=== PATIENT | female | born 1940 | race African-American/Black ===

== ENCOUNTER 2017-06-02 00:41 | Inpatient (IN) | payer MEDICARE, MEDICAID ==
[~2017-06-02] VITALS: Ht 157.5 cm; Wt 68.5 kg
[~2017-06-02 00:41] MED LIST: ALBU90AE IH; CLON0.1T PO; DIPH25CA83 PO; LIDO30CR TP; METO-293 PO; NEPVIT PO; OMEP20CA4 PO; TRAM50TA3 PO
[2017-06-02 04:33] LABS: BASOPHILS % 0.6 % (0.0-2.0); EOSINOPHILS % 3.6 % (0.0-5.0); HEMATOCRIT. 31.1 % (36.0-48.0); HEMOGLOBIN. 9.9 g/dL (12.0-16.0); LYMPHOCYTES % 21.9 % (20.0-50.0); MEAN CORPUSCULAR HEMOGLOBIN 27.8 pg (28.0-32.0); MEAN CORPUSCULAR VOLUME 87.5 fL (81.0-99.0); MEAN PLATELET VOLUME 9.3 fl (7.4-10.4); MONOCYTES % 14.7 % (2.0-8.0); NEUTROPHILS % 59.2 % (40.0-76.0); PLATELET 164 x1000/uL (130-400); RED BLOOD CELL COUNT 3.56 mill/uL (4.2-5.4); RED CELL DISTRIBUTION WIDTH 17.3 % (11.6-14.6)
[2017-06-02] MEDS ORDERED: LEVOFLOXACIN 750MG PREMIX 150 ML IV ONE (04:45)
[2017-06-02 04:47] LABS: CARBON DIOXIDE 33 mEq/L (21-32); CHLORIDE 97 mEq/L (98-107)
[2017-06-02 09:17] VITALS: BP 130/70
[2017-06-02 09:22] VITALS: BP 130/70
[2017-06-02] MEDS ORDERED: METO100T5 PO (09:42)
[2017-06-02] MEDS ORDERED: ALBUTEROL (0.083%) 2.5MG/3ML NEB HHN PRN (11:45)
[2017-06-02] MEDS ORDERED: CLONIDINE 0.1MG TABLET PO PRN ×2 (11:45→13:00)
[2017-06-02] MEDS: FAMOTIDINE 20MG TABLET PO SCH (12:13)
[2017-06-02 12:30] VITALS: BP 128/52
[2017-06-02] MEDS ORDERED: MAGNESIUM/ALUMINUM HYDROXIDE/SIMETHICONE 30ML UDC PO PRN (13:00)
[2017-06-02] MEDS ORDERED: ONDANSETRON HCL 4MG/2ML VIAL IV PRN (13:00)
[2017-06-02] MEDS ORDERED: GUAIFENESIN 200MG/10ML SUGAR FREE UDC PO PRN (13:00)
[2017-06-02] MEDS ORDERED: IPRATROPIUM/ALBUTEROL 0.5-3(2.5)MG/3ML NEB INH PRN (13:00)
[2017-06-02] MEDS: HYDROCODONE/ACETAMINOPHEN 5/325MG TABLET PO PRN ×2 (16:21→23:42)
[2017-06-02 16:23] VITALS: BP 166/72
[2017-06-02 17:28] VITALS: BP 135/75
[2017-06-02 20:00] VITALS: BP 102/36
[2017-06-03] VITALS: BP 169/77
[2017-06-03 02:30] VITALS: BP 122/58
[2017-06-03 04:00] VITALS: BP 111/40
[2017-06-03 07:19] LABS: BASOPHILS % 0.8 % (0.0-2.0); EOSINOPHILS % 3.1 % (0.0-5.0); HEMATOCRIT. 30.6 % (36.0-48.0); HEMOGLOBIN. 9.7 g/dL (12.0-16.0); LYMPHOCYTES % 14.3 % (20.0-50.0); MEAN CORPUSCULAR HEMOGLOBIN 27.9 pg (28.0-32.0); MEAN CORPUSCULAR VOLUME 88.1 fL (81.0-99.0); MEAN PLATELET VOLUME 9.1 fl (7.4-10.4); MONOCYTES % 12.9 % (2.0-8.0); NEUTROPHILS % 68.9 % (40.0-76.0); PLATELET 151 x1000/uL (130-400); RED BLOOD CELL COUNT 3.48 mill/uL (4.2-5.4); RED CELL DISTRIBUTION WIDTH 17.8 % (11.6-14.6)
[2017-06-03 08:03] LABS: CARBON DIOXIDE 30 mEq/L (21-32); CHLORIDE 103 mEq/L (98-107); PHOSPHORUS 2.6 mg/dL (2.5-4.9)
[2017-06-03] MEDS: FOLIC ACID/VITAMIN B COMP W-C TABLET PO SCH (08:24)
[2017-06-03] MEDS: FAMOTIDINE 20MG TABLET PO SCH (08:24)
[2017-06-03] MEDS: DOCUSATE SODIUM 100MG CAPSULE PO SCH (09:31)
[2017-06-03 12:00] VITALS: BP 130/58
[2017-06-03 16:00] VITALS: BP 128/59
[2017-06-03 20:00] VITALS: BP 118/46
[2017-06-03] MEDS ORDERED: EPOETIN ALFA 10000UNITS/ML VIAL SUBCUT SCH (21:00)
[2017-06-04] VITALS: BP_SYST 101; BP_SYST 124; BP_DIAS 39; BP_DIAS 55
[2017-06-04 04:00] VITALS: BP 124/55
[2017-06-04 06:31] LABS: BASOPHILS % 0.6 % (0.0-2.0); EOSINOPHILS % 3.5 % (0.0-5.0); HEMATOCRIT. 30.2 % (36.0-48.0); HEMOGLOBIN. 9.5 g/dL (12.0-16.0); LYMPHOCYTES % 21.9 % (20.0-50.0); MEAN CORPUSCULAR VOLUME 89.1 fL (81.0-99.0); MEAN PLATELET VOLUME 9.5 fl (7.4-10.4); MONOCYTES % 14.4 % (2.0-8.0); NEUTROPHILS % 59.6 % (40.0-76.0); PLATELET 138 x1000/uL (130-400); RED BLOOD CELL COUNT 3.39 mill/uL (4.2-5.4); RED CELL DISTRIBUTION WIDTH 17.6 % (11.6-14.6)
[2017-06-04 08:00] VITALS: BP 103/40
[2017-06-04 08:30] LABS: PHOSPHORUS 2.4 mg/dL (2.5-4.9)
[2017-06-04] MEDS: FOLIC ACID/VITAMIN B COMP W-C TABLET PO SCH (09:54)
[2017-06-04] MEDS: DOCUSATE SODIUM 100MG CAPSULE PO SCH (09:54)
[2017-06-04] MEDS: FAMOTIDINE 20MG TABLET PO SCH (09:54)
[2017-06-04 12:00] VITALS: BP 121/78
[2017-06-04] MEDS: ACETAMINOPHEN 325MG TABLET PO PRN (13:19)
[2017-06-04 16:00] VITALS: BP 105/49
[2017-06-04 20:47] VITALS: BP 109/42
[2017-06-05] VITALS: BP 116/49
[2017-06-05 04:46] VITALS: BP 121/55
[2017-06-05 07:54] VITALS: BP 125/51
[2017-06-05 07:57] LABS: BASOPHILS % 0.4 % (0.0-2.0); HEMATOCRIT. 31.5 % (36.0-48.0); LYMPHOCYTES % 16.6 % (20.0-50.0); MEAN CORPUSCULAR VOLUME 88.3 fL (81.0-99.0); MEAN PLATELET VOLUME 9.4 fl (7.4-10.4); MONOCYTES % 11.2 % (2.0-8.0); NEUTROPHILS % 67.8 % (40.0-76.0); PLATELET 149 x1000/uL (130-400); RED BLOOD CELL COUNT 3.57 mill/uL (4.2-5.4); RED CELL DISTRIBUTION WIDTH 17.5 % (11.6-14.6)
[2017-06-05] MEDS ORDERED: REGADENOSON 0.4 MG/5 ML IV ONE ×2 (08:15→10:19)
[2017-06-05] MEDS: FOLIC ACID/VITAMIN B COMP W-C TABLET PO SCH (08:56)
[2017-06-05] MEDS: DOCUSATE SODIUM 100MG CAPSULE PO SCH (08:56)
[2017-06-05] MEDS: FAMOTIDINE 20MG TABLET PO SCH (08:57)
[2017-06-05 12:00] VITALS: BP 130/37
[2017-06-05] MEDS ORDERED: LEVOFLOXACIN 500MG PREMIX 100 ML IV SCH (14:00)
[2017-06-05 16:00] VITALS: BP 91/45
[2017-06-05 20:00] VITALS: BP 116/47
[2017-06-06] VITALS: BP 138/65
[2017-06-06 04:00] VITALS: BP 117/49
[2017-06-06 08:00] VITALS: BP 136/60
[2017-06-06] MEDS: FAMOTIDINE 20MG TABLET PO SCH (09:56)
[2017-06-06] MEDS: FOLIC ACID/VITAMIN B COMP W-C TABLET PO SCH (09:57)
[2017-06-06] MEDS: DOCUSATE SODIUM 100MG CAPSULE PO SCH (09:58)
[2017-06-06 12:00] VITALS: BP 122/41
[2017-06-06] MEDS: ACETAMINOPHEN 325MG TABLET PO PRN (12:37)
[2017-06-06 14:29] VITALS: BP 122/41
[2017-06-06 16:00] VITALS: BP 120/48
== END 2017-06-06 16:07 | disposition home health service (06) | DRG 291 ==
LOC: ER 00:41 → 6WST 05:38 → EDBEDREQTM 05:40 → EDBEDREQ 05:40 → ENRESERV 06:42
PROVIDERS: ADMIT Hospitalist; ATTEND Hospitalist
PROC: 5A1D70Z Performance of Urinary Filtration, Intermittent, Less than 6 Hours Per Day (ICD-10-PCS; principal; 2017-06-03)
DX: I13.2 Hypertensive heart and chronic kidney disease with heart failure and with stage 5 chronic kidney disease, or end stage renal disease (principal); N18.6 End stage renal disease; J96.00 Acute respiratory failure, unspecified whether with hypoxia or hypercapnia; J18.9 Pneumonia, unspecified organism; Q61.3 Polycystic kidney, unspecified; J90 Pleural effusion, not elsewhere classified; Q44.6 Cystic disease of liver; D63.1 Anemia in chronic kidney disease; I50.31 Acute diastolic (congestive) heart failure; I87.1 Compression of vein; E78.5 Hyperlipidemia, unspecified; K21.9 Gastro-esophageal reflux disease without esophagitis; K74.60 Unspecified cirrhosis of liver; Z82.49 Family history of ischemic heart disease and other diseases of the circulatory system; Z86.73 Personal history of transient ischemic attack (TIA), and cerebral infarction without residual deficits; Z90.49 Acquired absence of other specified parts of digestive tract; Z99.2 Dependence on renal dialysis; Z88.0 Allergy status to penicillin; Z82.71 Family history of polycystic kidney; Z79.899 Other long term (current) drug therapy
CPT/HCPCS: 36415; 71010; 76604; 78452; 80048; 80053; 83605; 83735; 84100; 84484; 85025; 87040; 93005; 93017; 93970; 96365; 97116; 97162; 97166; 99285; A9500; J0885; J1956; J2405; J2785; J7030

== ENCOUNTER 2018-07-16 08:49 | Inpatient (IN) | payer MEDICARE, MEDICAID ==
[2018-07-16] VITALS (19 sets, daily range): BP systolic 100–172; BP diastolic 42–90
[~2018-07-16] VITALS: Ht 152.4 cm; Wt 65.8 kg
[~2018-07-16 08:49] MED LIST changes: +METO100T16 PO; -TRAM50TA3 PO
[2018-07-16 09:51] LABS: BASOPHILS % 0.3 % (0.0-2.0); CHLORIDE 91 mEq/L (98-107); EOSINOPHILS % 0.1 % (0.0-5.0); HEMATOCRIT. 39.4 % (36.0-48.0); HEMOGLOBIN. 12.5 g/dL (12.0-16.0); LYMPHOCYTES % 9.3 % (20.0-50.0); MEAN CORPUSCULAR HEMOGLOBIN 29.8 pg (28.0-32.0); MEAN CORPUSCULAR VOLUME 94.1 fL (81.0-99.0); MEAN PLATELET VOLUME 9.7 fl (7.4-10.4); MONOCYTES % 7.6 % (2.0-8.0); NEUTROPHILS % 82.7 % (40.0-76.0); PLATELET 179 x1000/uL (130-400); RED BLOOD CELL COUNT 4.19 mill/uL (4.2-5.4); RED CELL DISTRIBUTION WIDTH 17.8 % (11.6-14.6)
[2018-07-16] MEDS ORDERED: FUROSEMIDE 100MG/10ML VIAL IVP ONE (10:30)
[2018-07-16] MEDS ORDERED: NITROGLYCERIN 50MG PREMIX 250 ML IV ONE (10:30)
[2018-07-16] MEDS ORDERED: NITROGLYCERIN 0.4MG TABLET SL SL PRN (10:30)
[2018-07-16 12:42] LABS: BG BASE EXCESS 7.4 mmol/L (-2.0-2.0); BG BILEVEL POS AIRWAY PRESSURE 15/5; BG CARBOXYHEMOGLOBIN 0.8 % (0.5-1.5); BG DEOXYHEMOGLOBIN 0.4 % (0.0-5.0); BG FRACTION INSPIRED OXYGEN 100; BG HCO3 ACT 32.2 mmol/L (22.0-26.0); BG METHEMOGLOBIN 0.3 % (0.0-1.5); BG OXYGEN SATURATION 99.6 % (92.0-98.5); BG OXYHEMOGLOBIN 98.5 % (94.0-97.0); BG PCO2 46.2 mmHg (35.0-45.0); BG PH 7.461 (7.350-7.450); BG PO2 269.7 mmHg (75.0-100.0); BG SAMPLE SITE LEFT RADIAL; BG TOTAL HEMOGLOBIN 12.4 g/dL (12.0-18.0); BG VENT MODE MASK - BIPAP; BG VENT RATE 18 set
[2018-07-16] MEDS ORDERED: ACETAMINOPHEN 325MG TABLET PO PRN (15:00)
[2018-07-16] MEDS ORDERED: IPRATROPIUM/ALBUTEROL 0.5-3(2.5)MG/3ML NEB INH PRN (15:00)
[2018-07-16] MEDS ORDERED: GUAIFENESIN 200MG/10ML SUGAR FREE UDC PO PRN (15:00)
[2018-07-16] MEDS ORDERED: CLONIDINE 0.1MG TABLET PO PRN (15:00)
[2018-07-16] MEDS: METOPROLOL TARTRATE 50MG TABLET PO SCH (21:00)
[2018-07-16] MEDS: OMEPRAZOLE 20MG CAPSULE EXTENDED RELEASE PO SCH (21:43)
[2018-07-16] MEDS: SODIUM CHLORIDE 0.9% INJ 3ML FLUSH IVF SCH (22:00)
[2018-07-17] VITALS (55 sets, daily range): BP systolic 86–159; BP diastolic 34–85
[2018-07-17 05:32] LABS: BASOPHILS % 0.9 % (0.0-2.0); HEMATOCRIT. 34.1 % (36.0-48.0); HEMOGLOBIN. 11.4 g/dL (12.0-16.0); LYMPHOCYTES % 14.5 % (20.0-50.0); MEAN CORPUSCULAR HEMOGLOBIN 30.9 pg (28.0-32.0); MEAN CORPUSCULAR VOLUME 92.6 fL (81.0-99.0); MEAN PLATELET VOLUME 8.9 fl (7.4-10.4); MONOCYTES % 13.4 % (2.0-8.0); NEUTROPHILS % 68.2 % (40.0-76.0); PLATELET 118 x1000/uL (130-400); RED BLOOD CELL COUNT 3.68 mill/uL (4.2-5.4); RED CELL DISTRIBUTION WIDTH 17.3 % (11.6-14.6)
[2018-07-17] MEDS: SODIUM CHLORIDE 0.9% INJ 3ML FLUSH IVF SCH ×2 (06:00→22:00)
[2018-07-17 06:25] LABS: PHOSPHORUS 2.9 mg/dL (2.5-4.9)
[2018-07-17] MEDS: FOLIC ACID/VITAMIN B COMP W-C TABLET PO SCH (08:54)
[2018-07-17] MEDS: OMEPRAZOLE 20MG CAPSULE EXTENDED RELEASE PO SCH ×2 (08:54→21:49)
[2018-07-17] MEDS: METOPROLOL TARTRATE 50MG TABLET PO SCH ×2 (08:55→21:00)
[2018-07-17] MEDS: ONDANSETRON HCL 4MG/2ML INJ IV PRN (14:48)
[2018-07-18] VITALS (37 sets, daily range): BP systolic 87–143; BP diastolic 37–90
[2018-07-18 05:27] LABS: BASOPHILS % 0.5 % (0.0-2.0); EOSINOPHILS % 3.4 % (0.0-5.0); HEMATOCRIT. 34.5 % (36.0-48.0); HEMOGLOBIN. 11.1 g/dL (12.0-16.0); LYMPHOCYTES % 13.7 % (20.0-50.0); MEAN CORPUSCULAR HEMOGLOBIN 30.1 pg (28.0-32.0); MEAN CORPUSCULAR VOLUME 93.6 fL (81.0-99.0); MEAN PLATELET VOLUME 9.1 fl (7.4-10.4); MONOCYTES % 14.6 % (2.0-8.0); NEUTROPHILS % 67.8 % (40.0-76.0); PLATELET 113 x1000/uL (130-400); RED BLOOD CELL COUNT 3.69 mill/uL (4.2-5.4); RED CELL DISTRIBUTION WIDTH 16.9 % (11.6-14.6)
[2018-07-18 05:48] LABS: PHOSPHORUS 2.9 mg/dL (2.5-4.9)
[2018-07-18] MEDS: SODIUM CHLORIDE 0.9% INJ 3ML FLUSH IVF SCH ×3 (06:31→21:01)
[2018-07-18 08:06] LABS: INR 1.2; PARTIAL THROMBOPLASTIN TIME 32.1 sec (23.4-31.0); PROTHROMBIN TIME 11.7 sec (9.1-11.1)
[2018-07-18] MEDS: METOPROLOL TARTRATE 50MG TABLET PO SCH ×2 (09:08→20:12)
[2018-07-18] MEDS: FOLIC ACID/VITAMIN B COMP W-C TABLET PO SCH (09:08)
[2018-07-18] MEDS: OMEPRAZOLE 20MG CAPSULE EXTENDED RELEASE PO SCH ×2 (09:08→20:57)
[2018-07-18] MEDS ORDERED: SODIUM BICARBONATE 4% (2.4MEQ) 5ML VIAL IV ONE (09:46)
[2018-07-18] MEDS: ONDANSETRON HCL 4MG/2ML INJ IV PRN ×2 (10:44→15:37)
[2018-07-19] VITALS: BP 108/43
[2018-07-19 04:00] VITALS: BP 113/42
[2018-07-19] MEDS: SODIUM CHLORIDE 0.9% INJ 3ML FLUSH IVF SCH ×3 (06:02→22:00)
[2018-07-19] MEDS: OMEPRAZOLE 20MG CAPSULE EXTENDED RELEASE PO SCH ×2 (06:15→20:19)
[2018-07-19 07:11] LABS: BASOPHILS % 0.3 % (0.0-2.0); EOSINOPHILS % 1.9 % (0.0-5.0); HEMOGLOBIN. 10.7 g/dL (12.0-16.0); LYMPHOCYTES % 9.2 % (20.0-50.0); MEAN CORPUSCULAR HEMOGLOBIN 30.6 pg (28.0-32.0); MEAN CORPUSCULAR VOLUME 94.5 fL (81.0-99.0); MONOCYTES % 13.3 % (2.0-8.0); NEUTROPHILS % 75.3 % (40.0-76.0); PLATELET 121 x1000/uL (130-400); RED BLOOD CELL COUNT 3.49 mill/uL (4.2-5.4); RED CELL DISTRIBUTION WIDTH 16.8 % (11.6-14.6)
[2018-07-19 07:43] LABS: PHOSPHORUS 1.7 mg/dL (2.5-4.9)
[2018-07-19 08:00] VITALS: BP 114/45
[2018-07-19] MEDS: FOLIC ACID/VITAMIN B COMP W-C TABLET PO SCH (08:35)
[2018-07-19] MEDS: METOPROLOL TARTRATE 50MG TABLET PO SCH ×2 (08:35→20:09)
[2018-07-19] MEDS: ONDANSETRON HCL 4MG/2ML INJ IV PRN (10:54)
[2018-07-19 12:30] VITALS: BP 112/54
[2018-07-19 16:00] VITALS: BP 138/57
[2018-07-19 19:55] VITALS: BP 101/33
[2018-07-20] VITALS (7 sets, daily range): BP systolic 110–147; BP diastolic 41–52
[2018-07-20] MEDS: SODIUM CHLORIDE 0.9% INJ 3ML FLUSH IVF SCH ×3 (05:15→22:00)
[2018-07-20] MEDS: OMEPRAZOLE 20MG CAPSULE EXTENDED RELEASE PO SCH ×2 (06:07→22:20)
[2018-07-20 07:58] LABS: PHOSPHORUS 1.6 mg/dL (2.5-4.9)
[2018-07-20 08:06] LABS: BASOPHILS % 0.2 % (0.0-2.0); EOSINOPHILS % 1.8 % (0.0-5.0); HEMATOCRIT. 33.5 % (36.0-48.0); HEMOGLOBIN. 10.6 g/dL (12.0-16.0); LYMPHOCYTES % 9.3 % (20.0-50.0); MEAN CORPUSCULAR HEMOGLOBIN 29.8 pg (28.0-32.0); MEAN CORPUSCULAR VOLUME 93.8 fL (81.0-99.0); MONOCYTES % 14.3 % (2.0-8.0); NEUTROPHILS % 74.4 % (40.0-76.0); PLATELET 124 x1000/uL (130-400); RED BLOOD CELL COUNT 3.57 mill/uL (4.2-5.4); RED CELL DISTRIBUTION WIDTH 17.2 % (11.6-14.6)
[2018-07-20] MEDS: METOPROLOL TARTRATE 50MG TABLET PO SCH ×2 (08:42→22:20)
[2018-07-20] MEDS: FOLIC ACID/VITAMIN B COMP W-C TABLET PO SCH (08:42)
[2018-07-20] MEDS: TRAMADOL 50MG TABLET PO PRN ×2 (15:06→22:21)
[2018-07-20] MEDS: ONDANSETRON HCL 4MG/2ML INJ IV PRN (16:02)
[2018-07-20] MEDS ORDERED: IOHEXOL-350 100 ML BOTTLE ONE (17:31)
[2018-07-21] VITALS: BP 141/50
[2018-07-21 04:00] VITALS: BP 134/47
[2018-07-21] MEDS: SODIUM CHLORIDE 0.9% INJ 3ML FLUSH IVF SCH ×2 (06:35→14:00)
[2018-07-21] MEDS: OMEPRAZOLE 20MG CAPSULE EXTENDED RELEASE PO SCH (07:54)
[2018-07-21 07:58] LABS: HEMOGLOBIN. 10.7 g/dL (12.0-16.0); MEAN CORPUSCULAR HEMOGLOBIN 30.2 pg (28.0-32.0); MEAN CORPUSCULAR VOLUME 93.4 fL (81.0-99.0); MEAN PLATELET VOLUME 10.6 fl (7.4-10.4); PLATELET 131 x1000/uL (130-400); RED BLOOD CELL COUNT 3.53 mill/uL (4.2-5.4); RED CELL DISTRIBUTION WIDTH 16.7 % (11.6-14.6)
[2018-07-21 08:00] VITALS: BP 142/62
[2018-07-21] MEDS: FOLIC ACID/VITAMIN B COMP W-C TABLET PO SCH (09:12)
[2018-07-21] MEDS: METOPROLOL TARTRATE 50MG TABLET PO SCH (09:12)
[2018-07-21 12:00] VITALS: BP 126/49
[2018-07-21 12:50] LABS: PLATELET ESTIMATE NORMAL
[2018-07-21 14:33] VITALS: BP 133/71
[2018-07-21 15:22] LABS: PHOSPHORUS 2.9 mg/dL (2.5-4.9)
== END 2018-07-21 15:30 | DRG 291 ==
LOC: ER 08:50 → EDBEDREQ 10:44 → EDBEDREQSVC 11:08 → CVICU 12:51 → EDBEDREQTM 13:01 → EDBEDREQ 13:01 → ENRESERV 13:06 → 6WST 07-18 18:23
PROVIDERS: ADMIT Internal Medicine; ATTEND Internal Medicine
PROC: 5A09357 Assistance with Respiratory Ventilation, Less than 24 Consecutive Hours, Continuous Positive Airway Pressure (ICD-10-PCS; principal; 2018-07-16)
PROC: 5A1D70Z Performance of Urinary Filtration, Intermittent, Less than 6 Hours Per Day (ICD-10-PCS; 2018-07-16)
PROC: 5A1D70Z Performance of Urinary Filtration, Intermittent, Less than 6 Hours Per Day (ICD-10-PCS; 2018-07-17)
PROC: 0W993ZZ Drainage of Right Pleural Cavity, Percutaneous Approach (ICD-10-PCS; 2018-07-18)
PROC: 5A1D70Z Performance of Urinary Filtration, Intermittent, Less than 6 Hours Per Day (ICD-10-PCS; 2018-07-19)
PROC: 5A1D70Z Performance of Urinary Filtration, Intermittent, Less than 6 Hours Per Day (ICD-10-PCS; 2018-07-20)
DX: I13.2 Hypertensive heart and chronic kidney disease with heart failure and with stage 5 chronic kidney disease, or end stage renal disease (principal); J96.91 Respiratory failure, unspecified with hypoxia; N18.6 End stage renal disease; I50.33 Acute on chronic diastolic (congestive) heart failure; N25.81 Secondary hyperparathyroidism of renal origin; I16.0 Hypertensive urgency; R26.9 Unspecified abnormalities of gait and mobility; R53.81 Other malaise; N28.1 Cyst of kidney, acquired; K76.89 Other specified diseases of liver; Z96.651 Presence of right artificial knee joint; E83.39 Other disorders of phosphorus metabolism; K74.60 Unspecified cirrhosis of liver; D64.9 Anemia, unspecified; D69.6 Thrombocytopenia, unspecified; Z82.49 Family history of ischemic heart disease and other diseases of the circulatory system; Z82.71 Family history of polycystic kidney; Z86.73 Personal history of transient ischemic attack (TIA), and cerebral infarction without residual deficits; Z90.49 Acquired absence of other specified parts of digestive tract; Z99.2 Dependence on renal dialysis; Z88.0 Allergy status to penicillin; Z79.899 Other long term (current) drug therapy
CPT/HCPCS: 32555; 36415; 36600; 71045; 74176; 80048; 82375; 82805; 83735; 83880; 84100; 84484; 92523; 93005; 93306; 93970; 94660; 96365; 96375; 97116; 97162; 97166; 97530; 99291; J1940; J2405; J3490; Q9967

== ENCOUNTER 2018-07-21 16:40 | Inpatient (IN) | payer MEDICARE, MEDICAID ==
[~2018-07-21] VITALS: Ht 152.4 cm; Wt 65.8 kg
[2018-07-21 19:04] VITALS: BP 146/52
[2018-07-21 20:00] VITALS: BP 124/52
[2018-07-21] MEDS ORDERED: LIDOCAINE TP SCH (20:45)
[2018-07-21] MEDS ORDERED: DIPHENHYDRAMINE 25MG CAPSULE PO PRN (20:45)
[2018-07-21] MEDS ORDERED: MEDICATION NOT ON FORMULARY EA (Metoprolol Tartrate 1 TAB) PO SCH (20:45)
[2018-07-21] MEDS ORDERED: CLONIDINE 0.1MG TABLET PO SCH (20:45)
[2018-07-21] MEDS ORDERED: [UNRECOGNIZED DRUG - OTHER] TP SCH (20:45)
[2018-07-21] MEDS ORDERED: METOCLOPRAMIDE HCL 10 MG PO SCH (20:45)
[2018-07-21] MEDS ORDERED: PRILOCAINE TP SCH (20:45)
[2018-07-21] MEDS ORDERED: IPRATROPIUM/ALBUTEROL 0.5-3(2.5)MG/3ML NEB INH PRN (21:00)
[2018-07-21] MEDS ORDERED: ACETAMINOPHEN 650MG SUPP PR PRN (21:00)
[2018-07-21] MEDS ORDERED: ONDANSETRON HCL 4MG/2ML INJ IV PRN (21:00)
[2018-07-21] MEDS ORDERED: CLONIDINE 0.1MG TABLET PO PRN (21:00)
[2018-07-21] MEDS ORDERED: ACETAMINOPHEN 650MG/20.3ML UDC GT PRN (21:00)
[2018-07-21] MEDS ORDERED: DOCUSATE SODIUM 100MG CAPSULE PO PRN (21:00)
[2018-07-21] MEDS ORDERED: NA PHOS,M-B/NA PHOS,DI-BA ENEMA 118ML PR PRN (21:00)
[2018-07-21] MEDS ORDERED: GUAIFENESIN 200MG/10ML SUGAR FREE UDC PO PRN (21:00)
[2018-07-21] MEDS ORDERED: ACETAMINOPHEN 325MG TABLET PO PRN (21:00)
[2018-07-21] MEDS: OMEPRAZOLE 20MG CAPSULE EXTENDED RELEASE PO SCH (21:05)
[2018-07-21] MEDS: ENOXAPARIN 30MG/0.3ML SYR SUBCUT SCH (21:30)
[2018-07-21] MEDS: DIPHENHYDRAMINE 50MG/ML VIAL IV PRN (21:40)
[2018-07-21] MEDS: SODIUM CHLORIDE 0.9% INJ 3ML FLUSH IVF SCH (21:51)
[2018-07-21] MEDS ORDERED: METOPROLOL TARTRATE 100MG TABLET PO SCH (22:00)
[2018-07-22] MEDS: SODIUM CHLORIDE 0.9% INJ 3ML FLUSH IVF SCH ×3 (06:00→20:19)
[2018-07-22 08:00] VITALS: BP 140/53
[2018-07-22 08:05] LABS: HEMATOCRIT. 31.1 % (36.0-48.0); HEMOGLOBIN. 10.2 g/dL (12.0-16.0); MEAN CORPUSCULAR HEMOGLOBIN 30.7 pg (28.0-32.0); MEAN CORPUSCULAR VOLUME 93.9 fL (81.0-99.0); MEAN PLATELET VOLUME 9.7 fl (7.4-10.4); PLATELET 147 x1000/uL (130-400); RED BLOOD CELL COUNT 3.31 mill/uL (4.2-5.4); RED CELL DISTRIBUTION WIDTH 16.7 % (11.6-14.6)
[2018-07-22 08:40] LABS: CHLORIDE 103 mEq/L (98-107)
[2018-07-22 08:54] LABS: LDL CHOLESTEROL 81 mg/dL (5-100)
[2018-07-22 08:55] LABS: HDL CHOLESTEROL 56 mg/dL (40-59)
[2018-07-22] MEDS ORDERED: METOPROLOL TARTRATE 50MG TABLET PO SCH (09:30)
[2018-07-22] MEDS: OMEPRAZOLE 20MG CAPSULE EXTENDED RELEASE PO SCH (10:27)
[2018-07-22] MEDS: METOCLOPRAMIDE HCL 10MG TABLET PO SCH ×2 (10:28→20:19)
[2018-07-22] MEDS: FOLIC ACID/VITAMIN B COMP W-C TABLET PO SCH (10:28)
[2018-07-22] MEDS: METOPROLOL TARTRATE 100MG TABLET PO SCH ×2 (11:00→20:19)
[2018-07-22] MEDS: MAGNESIUM/ALUMINUM HYDROXIDE/SIMETHICONE 30ML UDC PO PRN (17:10)
[2018-07-22 20:00] VITALS: BP 154/64
[2018-07-22] MEDS: ENOXAPARIN 30MG/0.3ML SYR SUBCUT SCH (20:20)
[2018-07-22 21:20] LABS: PLATELET ESTIMATE NORMAL
[2018-07-23 08:00] VITALS: BP 130/51
[2018-07-23] MEDS: OMEPRAZOLE 20MG CAPSULE EXTENDED RELEASE PO SCH (08:11)
[2018-07-23] MEDS: FOLIC ACID/VITAMIN B COMP W-C TABLET PO SCH (08:11)
[2018-07-23] MEDS: METOPROLOL TARTRATE 100MG TABLET PO SCH ×2 (08:12→21:00)
[2018-07-23] MEDS: METOCLOPRAMIDE HCL 10MG TABLET PO SCH ×2 (08:12→17:21)
[2018-07-23] MEDS: SODIUM CHLORIDE 0.9% INJ 3ML FLUSH IVF SCH ×3 (08:16→21:17)
[2018-07-23 20:00] VITALS: BP 117/44
[2018-07-23] MEDS: ENOXAPARIN 30MG/0.3ML SYR SUBCUT SCH (21:17)
[2018-07-24] MEDS: SODIUM CHLORIDE 0.9% INJ 3ML FLUSH IVF SCH ×3 (06:00→21:24)
[2018-07-24 07:56] LABS: HEMATOCRIT. 32.7 % (36.0-48.0); HEMOGLOBIN. 10.4 g/dL (12.0-16.0); MEAN CORPUSCULAR HEMOGLOBIN 29.3 pg (28.0-32.0); MEAN CORPUSCULAR VOLUME 92.6 fL (81.0-99.0); MEAN PLATELET VOLUME 9.8 fl (7.4-10.4); PLATELET 144 x1000/uL (130-400); RED BLOOD CELL COUNT 3.53 mill/uL (4.2-5.4); RED CELL DISTRIBUTION WIDTH 16.2 % (11.6-14.6)
[2018-07-24 08:00] VITALS: BP 138/59
[2018-07-24] MEDS: FAMOTIDINE 20MG TABLET PO SCH (08:39)
[2018-07-24] MEDS: METOCLOPRAMIDE HCL 10MG TABLET PO SCH ×2 (08:39→17:08)
[2018-07-24] MEDS: FOLIC ACID/VITAMIN B COMP W-C TABLET PO SCH (08:39)
[2018-07-24] MEDS: METOPROLOL TARTRATE 100MG TABLET PO SCH ×2 (08:40→21:23)
[2018-07-24 10:23] LABS: PLATELET ESTIMATE NORMAL
[2018-07-24 11:15] LABS: PHOSPHORUS 2.4 mg/dL (2.5-4.9)
[2018-07-24 12:14] LABS: FOLIC ACID (FOLATE) SERUM 10.8 ng/mL (>5.38)
[2018-07-24 20:00] VITALS: BP 126/52
[2018-07-24] MEDS: ENOXAPARIN 30MG/0.3ML SYR SUBCUT SCH (21:24)
[2018-07-25] VITALS: BP 126/46
[2018-07-25] MEDS: SODIUM CHLORIDE 0.9% INJ 3ML FLUSH IVF SCH ×3 (05:17→21:24)
[2018-07-25 08:00] VITALS: BP 118/53
[2018-07-25] MEDS: METOPROLOL TARTRATE 100MG TABLET PO SCH ×2 (09:00→21:00)
[2018-07-25] MEDS: FOLIC ACID/VITAMIN B COMP W-C TABLET PO SCH (09:38)
[2018-07-25] MEDS: METOCLOPRAMIDE HCL 10MG TABLET PO SCH ×2 (09:38→17:29)
[2018-07-25] MEDS: FAMOTIDINE 20MG TABLET PO SCH (10:58)
[2018-07-25 20:00] VITALS: BP 137/50
[2018-07-25] MEDS: ENOXAPARIN 30MG/0.3ML SYR SUBCUT SCH (21:00)
[2018-07-25] MEDS: DIPHENHYDRAMINE 50MG/ML VIAL IV PRN (21:24)
[2018-07-26] MEDS: SODIUM CHLORIDE 0.9% INJ 3ML FLUSH IVF SCH ×3 (05:52→22:00)
[2018-07-26 08:00] VITALS: BP 126/40
[2018-07-26] MEDS: FOLIC ACID/VITAMIN B COMP W-C TABLET PO SCH (08:39)
[2018-07-26] MEDS: METOPROLOL TARTRATE 100MG TABLET PO SCH ×2 (08:40→21:00)
[2018-07-26] MEDS: METOCLOPRAMIDE HCL 10MG TABLET PO SCH ×2 (08:40→17:09)
[2018-07-26] MEDS: FAMOTIDINE 20MG TABLET PO SCH (08:40)
[2018-07-26 19:00] VITALS: BP 113/42
[2018-07-26] MEDS: ENOXAPARIN 30MG/0.3ML SYR SUBCUT SCH (22:06)
[2018-07-27] MEDS: SODIUM CHLORIDE 0.9% INJ 3ML FLUSH IVF SCH ×3 (06:00→19:32)
[2018-07-27 08:05] VITALS: BP 114/46
[2018-07-27] MEDS: METOCLOPRAMIDE HCL 10MG TABLET PO SCH ×2 (08:24→16:30)
[2018-07-27] MEDS: FOLIC ACID/VITAMIN B COMP W-C TABLET PO SCH (08:24)
[2018-07-27] MEDS: FAMOTIDINE 20MG TABLET PO SCH (08:25)
[2018-07-27] MEDS: METOPROLOL TARTRATE 100MG TABLET PO SCH ×2 (08:26→19:18)
[2018-07-27 08:35] LABS: HEMATOCRIT. 31.5 % (36.0-48.0); HEMOGLOBIN. 10.2 g/dL (12.0-16.0); MEAN CORPUSCULAR HEMOGLOBIN 29.7 pg (28.0-32.0); MEAN CORPUSCULAR VOLUME 91.9 fL (81.0-99.0); MEAN PLATELET VOLUME 9.6 fl (7.4-10.4); PLATELET 200 x1000/uL (130-400); RED BLOOD CELL COUNT 3.43 mill/uL (4.2-5.4); RED CELL DISTRIBUTION WIDTH 16.6 % (11.6-14.6)
[2018-07-27 14:16] LABS: PLATELET ESTIMATE NORMAL
[2018-07-27 14:21] LABS: 25-HYDROXY VITAMIN D3 43 ng/mL (.)
[2018-07-27] MEDS ORDERED: ONDANSETRON 4MG/5ML UDC PO ONE (17:45)
[2018-07-27] MEDS: ONDANSETRON 4MG ODT PO PRN (17:54)
[2018-07-27 20:00] VITALS: BP 149/68
[2018-07-27] MEDS: ENOXAPARIN 30MG/0.3ML SYR SUBCUT SCH (21:36)
[2018-07-28] MEDS: SODIUM CHLORIDE 0.9% INJ 3ML FLUSH IVF SCH ×3 (06:00→19:22)
[2018-07-28 08:08] VITALS: BP 125/59
[2018-07-28] MEDS: FOLIC ACID/VITAMIN B COMP W-C TABLET PO SCH (09:02)
[2018-07-28] MEDS: METOCLOPRAMIDE HCL 10MG TABLET PO SCH ×2 (09:02→16:49)
[2018-07-28] MEDS: FAMOTIDINE 20MG TABLET PO SCH (09:02)
[2018-07-28] MEDS: METOPROLOL TARTRATE 100MG TABLET PO SCH ×2 (09:03→22:24)
[2018-07-28 20:00] VITALS: BP 149/62
[2018-07-28] MEDS: ENOXAPARIN 30MG/0.3ML SYR SUBCUT SCH (22:24)
[2018-07-29] MEDS: ONDANSETRON 4MG ODT PO PRN (03:17)
[2018-07-29] MEDS: SODIUM CHLORIDE 0.9% INJ 3ML FLUSH IVF SCH ×3 (05:45→22:00)
[2018-07-29 08:12] VITALS: BP 151/61
[2018-07-29] MEDS: FAMOTIDINE 20MG TABLET PO SCH (09:37)
[2018-07-29] MEDS: METOCLOPRAMIDE HCL 10MG TABLET PO SCH ×2 (09:37→16:08)
[2018-07-29] MEDS: FOLIC ACID/VITAMIN B COMP W-C TABLET PO SCH (09:38)
[2018-07-29] MEDS: METOPROLOL TARTRATE 100MG TABLET PO SCH ×2 (09:38→20:27)
[2018-07-29] MEDS: MAGNESIUM/ALUMINUM HYDROXIDE/SIMETHICONE 30ML UDC PO PRN (16:08)
[2018-07-29 20:00] VITALS: BP 160/60
[2018-07-29] MEDS: ENOXAPARIN 30MG/0.3ML SYR SUBCUT SCH (20:30)
[2018-07-30] MEDS: SODIUM CHLORIDE 0.9% INJ 3ML FLUSH IVF SCH ×3 (05:42→22:00)
[2018-07-30 07:15] VITALS: BP 157/63
[2018-07-30 08:00] VITALS: BP 130/61
[2018-07-30] MEDS: FAMOTIDINE 20MG TABLET PO SCH (08:46)
[2018-07-30] MEDS: METOCLOPRAMIDE HCL 10MG TABLET PO SCH ×2 (08:46→17:00)
[2018-07-30] MEDS: FOLIC ACID/VITAMIN B COMP W-C TABLET PO SCH (08:46)
[2018-07-30] MEDS: METOPROLOL TARTRATE 100MG TABLET PO SCH ×2 (08:47→20:38)
[2018-07-30 13:17] LABS: CHLORIDE 96 mEq/L (98-107)
[2018-07-30 13:26] LABS: PHOSPHORUS 2.9 mg/dL (2.5-4.9)
[2018-07-30 15:06] LABS: BASOPHILS % 0.7 % (0.0-2.0); EOSINOPHILS % 0.7 % (0.0-5.0); HEMATOCRIT. 29.9 % (36.0-48.0); HEMOGLOBIN. 9.8 g/dL (12.0-16.0); LYMPHOCYTES % 7.1 % (20.0-50.0); MEAN CORPUSCULAR HEMOGLOBIN 29.7 pg (28.0-32.0); MEAN CORPUSCULAR VOLUME 90.2 fL (81.0-99.0); MEAN PLATELET VOLUME 9.7 fl (7.4-10.4); NEUTROPHILS % 86.5 % (40.0-76.0); PLATELET 188 x1000/uL (130-400); RED BLOOD CELL COUNT 3.31 mill/uL (4.2-5.4); RED CELL DISTRIBUTION WIDTH 16.6 % (11.6-14.6)
[2018-07-30 15:10] LABS: CHLORIDE 100 mEq/L (98-107)
[2018-07-30 20:00] VITALS: BP 117/46
[2018-07-30] MEDS: ENOXAPARIN 30MG/0.3ML SYR SUBCUT SCH (20:38)
[2018-07-31] MEDS: SODIUM CHLORIDE 0.9% INJ 3ML FLUSH IVF SCH ×3 (06:00→21:11)
[2018-07-31 07:52] VITALS: BP 138/57
[2018-07-31] MEDS: FOLIC ACID/VITAMIN B COMP W-C TABLET PO SCH (08:42)
[2018-07-31] MEDS: METOPROLOL TARTRATE 100MG TABLET PO SCH ×2 (08:42→21:00)
[2018-07-31] MEDS: FAMOTIDINE 20MG TABLET PO SCH (08:42)
[2018-07-31] MEDS: METOCLOPRAMIDE HCL 10MG TABLET PO SCH ×2 (08:42→17:59)
[2018-07-31] MEDS ORDERED: SODIUM POLYSTYRENE SULFONATE 15 G/60 ML BOT PO NR (13:00)
[2018-07-31 20:00] VITALS: BP 107/41
[2018-07-31] MEDS: ENOXAPARIN 30MG/0.3ML SYR SUBCUT SCH (21:11)
[2018-08-01] MEDS: SODIUM CHLORIDE 0.9% INJ 3ML FLUSH IVF SCH ×3 (06:00→21:00)
[2018-08-01 08:00] VITALS: BP 144/49
[2018-08-01] MEDS: FOLIC ACID/VITAMIN B COMP W-C TABLET PO SCH (08:55)
[2018-08-01] MEDS: FAMOTIDINE 20MG TABLET PO SCH (08:55)
[2018-08-01] MEDS: METOCLOPRAMIDE HCL 10MG TABLET PO SCH ×2 (08:55→17:31)
[2018-08-01] MEDS: METOPROLOL TARTRATE 100MG TABLET PO SCH ×2 (09:00→20:56)
[2018-08-01 17:41] LABS: HEMATOCRIT. 28.2 % (36.0-48.0); MEAN CORPUSCULAR HEMOGLOBIN 29.6 pg (28.0-32.0); MEAN CORPUSCULAR VOLUME 92.3 fL (81.0-99.0); MEAN PLATELET VOLUME 9.6 fl (7.4-10.4); PLATELET 165 x1000/uL (130-400); RED BLOOD CELL COUNT 3.06 mill/uL (4.2-5.4); RED CELL DISTRIBUTION WIDTH 17.4 % (11.6-14.6)
[2018-08-01 20:00] VITALS: BP 101/43
[2018-08-01] MEDS: ENOXAPARIN 30MG/0.3ML SYR SUBCUT SCH (20:58)
[2018-08-01 22:56] LABS: PLATELET ESTIMATE NORMAL
[2018-08-02 08:00] VITALS: BP 115/40
[2018-08-02] MEDS: FOLIC ACID/VITAMIN B COMP W-C TABLET PO SCH (08:46)
[2018-08-02] MEDS: FAMOTIDINE 20MG TABLET PO SCH (08:46)
[2018-08-02] MEDS: METOCLOPRAMIDE HCL 10MG TABLET PO SCH (08:46)
[2018-08-02] MEDS: METOPROLOL TARTRATE 100MG TABLET PO SCH (09:00)
[2018-08-02 14:00] VITALS: BP 115/62
== END 2018-08-02 14:50 | disposition home health service (06) | DRG 947 ==
PROVIDERS: ADMIT Physical Medicine & Rehabilitation Spinal Cord Injury Medicine; ATTEND Internal Medicine
PROC: 5A1D70Z Performance of Urinary Filtration, Intermittent, Less than 6 Hours Per Day (ICD-10-PCS; principal; 2018-07-22)
PROC: 5A1D70Z Performance of Urinary Filtration, Intermittent, Less than 6 Hours Per Day (ICD-10-PCS; 2018-07-24)
PROC: 5A1D70Z Performance of Urinary Filtration, Intermittent, Less than 6 Hours Per Day (ICD-10-PCS; 2018-07-27)
PROC: 5A1D70Z Performance of Urinary Filtration, Intermittent, Less than 6 Hours Per Day (ICD-10-PCS; 2018-07-30)
PROC: 5A1D70Z Performance of Urinary Filtration, Intermittent, Less than 6 Hours Per Day (ICD-10-PCS; 2018-07-31)
PROC: 5A1D70Z Performance of Urinary Filtration, Intermittent, Less than 6 Hours Per Day (ICD-10-PCS; 2018-08-01)
DX: R53.81 Other malaise (principal); I50.31 Acute diastolic (congestive) heart failure; N18.6 End stage renal disease; J96.91 Respiratory failure, unspecified with hypoxia; E46 Unspecified protein-calorie malnutrition; J90 Pleural effusion, not elsewhere classified; Q61.3 Polycystic kidney, unspecified; Q44.6 Cystic disease of liver; I11.0 Hypertensive heart disease with heart failure; R26.9 Unspecified abnormalities of gait and mobility; D69.6 Thrombocytopenia, unspecified; R13.11 Dysphagia, oral phase; K74.60 Unspecified cirrhosis of liver; D63.8 Anemia in other chronic diseases classified elsewhere; E83.39 Other disorders of phosphorus metabolism; E87.5 Hyperkalemia; F06.31 Mood disorder due to known physiological condition with depressive features; Z79.899 Other long term (current) drug therapy; Z99.2 Dependence on renal dialysis; Z88.0 Allergy status to penicillin; Z86.73 Personal history of transient ischemic attack (TIA), and cerebral infarction without residual deficits; Z82.49 Family history of ischemic heart disease and other diseases of the circulatory system; Z86.74 Personal history of sudden cardiac arrest; Z68.28 Body mass index [BMI] 28.0-28.9, adult
CPT/HCPCS: 36415; 80048; 80061; 82306; 82607; 82728; 82746; 83540; 83550; 83735; 84100; 84134; 84443; 92523; 92610; 93970; 97110; 97112; 97116; 97150; 97162; 97166; 97530; 97535; C1893; G0515; J1200; J1650; J2405; J8597; Q0162

== ENCOUNTER 2019-01-14 10:02 | Emergency (ER) | payer MEDICARE, MEDICAID ==
[~2019-01-14] VITALS: Ht 157.5 cm; Wt 64.0 kg
[2019-01-14] MEDS ORDERED: MORPHINE SULFATE 4 MG/ML CPJ (NOT FOR IM USE) IV ONE (11:15)
[2019-01-14 11:41] LABS: HEMATOCRIT. 38.2 % (36.0-48.0); HEMOGLOBIN. 12.3 g/dL (12.0-16.0); MEAN CORPUSCULAR HEMOGLOBIN 29.8 pg (28.0-32.0); MEAN CORPUSCULAR VOLUME 92.3 fL (81.0-99.0); MEAN PLATELET VOLUME 9.1 fl (7.4-10.4); PLATELET 153 x1000/uL (130-400); RED BLOOD CELL COUNT 4.14 mill/uL (4.2-5.4); RED CELL DISTRIBUTION WIDTH 16.7 % (11.6-14.6)
[2019-01-14 11:45] LABS: CHLORIDE 100 mEq/L (98-107)
[2019-01-14 12:29] LABS: PLATELET ESTIMATE NORMAL
[2019-01-14 13:40] VITALS: BP 168/82
== END 2019-01-14 13:50 | disposition home or self-care (01) ==
LOC: ER 10:02
DX: S40.012A Contusion of left shoulder, initial encounter (principal); W01.0XXA Fall on same level from slipping, tripping and stumbling without subsequent striking against object, initial encounter; Y93.89 Activity, other specified; Y92.89 Other specified places as the place of occurrence of the external cause; I13.2 Hypertensive heart and chronic kidney disease with heart failure and with stage 5 chronic kidney disease, or end stage renal disease; I50.9 Heart failure, unspecified; N18.6 End stage renal disease; Q44.6 Cystic disease of liver; N25.81 Secondary hyperparathyroidism of renal origin; D64.9 Anemia, unspecified; Q61.3 Polycystic kidney, unspecified; Q61.2 Polycystic kidney, adult type; Z86.73 Personal history of transient ischemic attack (TIA), and cerebral infarction without residual deficits; Z79.899 Other long term (current) drug therapy; Z99.2 Dependence on renal dialysis; Z88.0 Allergy status to penicillin
CPT/HCPCS: 36415; 71045; 73030; 80053; 85025; 93005; 96374; 99284; J2270

== ENCOUNTER 2019-01-26 05:19 | Inpatient (IN) | payer MEDICARE, MEDICAID ==
[~2019-01-26] VITALS: Ht 158.8 cm; Wt 69.4 kg
[2019-01-26] MEDS ORDERED: KETOROLAC 30MG/ML VIAL IV STA (06:53)
[2019-01-26 07:11] LABS: CHLORIDE 96 mEq/L (98-107)
[2019-01-26 07:18] LABS: BASOPHILS % 0.7 % (0.0-2.0); HEMATOCRIT. 37.3 % (36.0-48.0); HEMOGLOBIN. 12.1 g/dL (12.0-16.0); LYMPHOCYTES % 12.8 % (20.0-50.0); MEAN CORPUSCULAR VOLUME 92.3 fL (81.0-99.0); MEAN PLATELET VOLUME 10.4 fl (7.4-10.4); MONOCYTES % 9.6 % (2.0-8.0); NEUTROPHILS % 74.9 % (40.0-76.0); PLATELET 145 x1000/uL (130-400); RED BLOOD CELL COUNT 4.04 mill/uL (4.2-5.4); RED CELL DISTRIBUTION WIDTH 17.4 % (11.6-14.6)
[2019-01-26] MEDS ORDERED: LEVOFLOXACIN 750MG PREMIX 150 ML IV ONE (07:45)
[2019-01-26 10:30] VITALS: BP 141/67
[2019-01-26] MEDS ORDERED: CLONIDINE 0.1MG TABLET PO PRN (12:45)
[2019-01-26] MEDS ORDERED: METOCLOPRAMIDE 10MG/10 ML UDC PO PRN (12:45)
[2019-01-26] MEDS: FAMOTIDINE 20MG TABLET PO SCH (14:24)
[2019-01-26] MEDS: SEVELAMER CARBONATE 800 MG TABLET PO SCH ×2 (14:24→19:56)
[2019-01-26] MEDS ORDERED: DIPHENHYDRAMINE 50MG/ML VIAL IV NR (15:15)
[2019-01-26] MEDS ORDERED: DIPHENHYDRAMINE 50MG/ML VIAL IV PRN (15:30)
[2019-01-26] MEDS ORDERED: METO-539 MT (21:04)
[2019-01-26] MEDS ORDERED: METO5TAB86 MT (21:04)
[2019-01-27 00:45] VITALS: BP 124/52
[2019-01-27 04:00] VITALS: BP 134/62
[2019-01-27 06:41] LABS: HEMATOCRIT. 34.4 % (36.0-48.0); HEMOGLOBIN. 11.4 g/dL (12.0-16.0); MEAN CORPUSCULAR HEMOGLOBIN 30.4 pg (28.0-32.0); MEAN CORPUSCULAR VOLUME 92.2 fL (81.0-99.0); MEAN PLATELET VOLUME 10.4 fl (7.4-10.4); PLATELET 97 x1000/uL (130-400); RED BLOOD CELL COUNT 3.74 mill/uL (4.2-5.4)
[2019-01-27 08:00] VITALS: BP 148/69
[2019-01-27 10:19] LABS: PLATELET ESTIMATE DECREASED
[2019-01-27] MEDS: FOLIC ACID/VITAMIN B COMP W-C TABLET PO SCH (10:35)
[2019-01-27] MEDS: SEVELAMER CARBONATE 800 MG TABLET PO SCH ×3 (10:35→18:26)
[2019-01-27] MEDS: FAMOTIDINE 20MG TABLET PO SCH (10:35)
[2019-01-27 11:23] VITALS: BP 109/52
[2019-01-27 12:35] LABS: INR 1.2; PARTIAL THROMBOPLASTIN TIME 36.5 sec (23.4-31.0)
[2019-01-27] MEDS ORDERED: SODIUM BICARBONATE 4% (2.4MEQ) 5ML VIAL IV ONE (13:27)
[2019-01-27 15:08] VITALS: BP 147/61
[2019-01-27 20:00] VITALS: BP_SYST 141; BP_SYST 147; BP_DIAS 47
[2019-01-28 00:30] VITALS: BP 138/51
[2019-01-28 04:00] VITALS: BP 132/77
[2019-01-28 07:27] LABS: BASOPHILS % 0.6 % (0.0-2.0); EOSINOPHILS % 3.8 % (0.0-5.0); HEMATOCRIT. 32.5 % (36.0-48.0); HEMOGLOBIN. 10.6 g/dL (12.0-16.0); LYMPHOCYTES % 18.9 % (20.0-50.0); MEAN CORPUSCULAR HEMOGLOBIN 30.3 pg (28.0-32.0); MEAN CORPUSCULAR VOLUME 92.4 fL (81.0-99.0); MEAN PLATELET VOLUME 10.8 fl (7.4-10.4); MONOCYTES % 14.9 % (2.0-8.0); NEUTROPHILS % 61.8 % (40.0-76.0); PLATELET 97 x1000/uL (130-400); RED BLOOD CELL COUNT 3.51 mill/uL (4.2-5.4); RED CELL DISTRIBUTION WIDTH 17.2 % (11.6-14.6)
[2019-01-28] MEDS: SEVELAMER CARBONATE 800 MG TABLET PO SCH ×2 (07:50→14:34)
[2019-01-28 08:00] VITALS: BP 132/62
[2019-01-28 08:40] LABS: PHOSPHORUS 4.1 mg/dL (2.5-4.9)
[2019-01-28 12:00] VITALS: BP 122/48
[2019-01-28] MEDS: FAMOTIDINE 20MG TABLET PO SCH (14:34)
[2019-01-28] MEDS: FOLIC ACID/VITAMIN B COMP W-C TABLET PO SCH (14:34)
[2019-01-28 14:42] VITALS: BP 122/48
== END 2019-01-28 16:56 | disposition home or self-care (01) | DRG 186 ==
LOC: ER 05:19 → 6WST 07:48 → ENRESERV 08:45
PROVIDERS: ADMIT Internal Medicine Nephrology; ATTEND Internal Medicine Nephrology
PROC: 5A1D70Z Performance of Urinary Filtration, Intermittent, Less than 6 Hours Per Day (ICD-10-PCS; 2019-01-26)
PROC: 0W993ZZ Drainage of Right Pleural Cavity, Percutaneous Approach (ICD-10-PCS; principal; 2019-01-27)
PROC: 5A1D70Z Performance of Urinary Filtration, Intermittent, Less than 6 Hours Per Day (ICD-10-PCS; 2019-01-27)
DX: J90 Pleural effusion, not elsewhere classified (principal); J96.90 Respiratory failure, unspecified, unspecified whether with hypoxia or hypercapnia; N18.6 End stage renal disease; Q61.3 Polycystic kidney, unspecified; N25.81 Secondary hyperparathyroidism of renal origin; I12.0 Hypertensive chronic kidney disease with stage 5 chronic kidney disease or end stage renal disease; Q44.6 Cystic disease of liver; D69.6 Thrombocytopenia, unspecified; F41.9 Anxiety disorder, unspecified; K21.9 Gastro-esophageal reflux disease without esophagitis; K74.60 Unspecified cirrhosis of liver; Z96.651 Presence of right artificial knee joint; Z79.84 Long term (current) use of oral hypoglycemic drugs; Z79.899 Other long term (current) drug therapy; Z99.2 Dependence on renal dialysis; Z88.0 Allergy status to penicillin; Z90.49 Acquired absence of other specified parts of digestive tract; Z91.81 History of falling; Z82.71 Family history of polycystic kidney; Z82.49 Family history of ischemic heart disease and other diseases of the circulatory system; Z91.15 Patient's noncompliance with renal dialysis
CPT/HCPCS: 32555; 36415; 71045; 71250; 80048; 83735; 83880; 84100; 84484; 93005; 93970; 96365; 96375; 97162; 99285; J1200; J1885; J1956; J3490

== ENCOUNTER 2019-11-30 12:45 | Inpatient (IN) | payer MEDICARE, MEDICAID ==
[~2019-11-30] VITALS: Ht 160 cm; Wt 71.2 kg
[~2019-11-30 12:45] MED LIST changes: -METO-293 PO; +METO-539 MT; -METO100T16 PO; +METO5TAB86 MT
[2019-11-30] MEDS ORDERED: ONDANSETRON HCL 4MG/2ML INJ IV STA (13:24)
[2019-11-30] MEDS ORDERED: MORPHINE SULFATE 4 MG/ML CPJ (NOT FOR IM USE) IV STA (13:24)
[2019-11-30 14:38] LABS: BASOPHILS % 0.5 % (0.0-2.0); EOSINOPHILS % 0.9 % (0.0-5.0); HEMOGLOBIN. 11.4 g/dL (12.0-16.0); LYMPHOCYTES % 15.1 % (20.0-50.0); MEAN CORPUSCULAR HEMOGLOBIN 30.9 pg (28.0-32.0); MEAN CORPUSCULAR VOLUME 94.4 fL (81.0-99.0); MEAN PLATELET VOLUME 9.4 fl (7.4-10.4); MONOCYTES % 13.5 % (2.0-8.0); PLATELET 143 x1000/uL (130-400); RED BLOOD CELL COUNT 3.71 mill/uL (4.2-5.4); RED CELL DISTRIBUTION WIDTH 17.6 % (11.6-14.6)
[2019-11-30 14:43] LABS: CHLORIDE 97 mEq/L (98-107)
[2019-11-30 14:45] LABS: PARTIAL THROMBOPLASTIN TIME 33.6 sec (23.4-31.0); PROTHROMBIN TIME 11.3 sec (9.6-11.0)
[2019-11-30] MEDS ORDERED: LEVOFLOXACIN 750MG PREMIX 150 ML IV ONE (15:00)
[2019-11-30] MEDS ORDERED: GUAIFENESIN 200MG/10ML SUGAR FREE UDC PO PRN (19:15)
[2019-11-30] MEDS ORDERED: ACETAMINOPHEN 325MG TABLET PO PRN ×2 (19:15)
[2019-11-30] MEDS ORDERED: ONDANSETRON HCL 4MG/2ML INJ IV PRN (19:15)
[2019-11-30] MEDS ORDERED: ZOLPIDEM TARTRATE 5MG TABLET PO PRN (19:15)
[2019-11-30] MEDS ORDERED: DIPHENHYDRAMINE 50MG/ML VIAL IV PRN (19:15)
[2019-11-30] MEDS ORDERED: CLONIDINE 0.1MG TABLET PO PRN (19:15)
[2019-11-30] MEDS ORDERED: IPRATROPIUM/ALBUTEROL 0.5-3(2.5)MG/3ML NEB HHN PRN (19:15)
[2019-11-30] MEDS ORDERED: MAGNESIUM/ALUMINUM HYDROXIDE/SIMETHICONE 30ML UDC PO PRN (19:15)
[2019-11-30 22:20] VITALS: BP 137/67
[2019-12-01] VITALS: BP 137/67
[2019-12-01] MEDS: OMEPRAZOLE 20MG CAPSULE EXTENDED RELEASE PO SCH ×2 (00:09→07:57)
[2019-12-01] MEDS: METOPROLOL TARTRATE 50MG TABLET PO SCH ×2 (00:09→09:06)
[2019-12-01] MEDS: METOCLOPRAMIDE HCL 5MG TABLET PO SCH ×4 (00:09→17:38)
[2019-12-01 04:00] VITALS: BP 122/62
[2019-12-01] MEDS: SODIUM CHLORIDE 0.9% INJ 3ML FLUSH IVF SCH ×2 (05:28→14:37)
[2019-12-01 08:00] VITALS: BP 135/66
[2019-12-01] MEDS ORDERED: FOLIC ACID/VITAMIN B COMP W-C TABLET PO SCH (09:00)
[2019-12-01 09:47] LABS: HEMOGLOBIN. 11.4 g/dL (12.0-16.0); MEAN CORPUSCULAR HEMOGLOBIN 31.1 pg (28.0-32.0); MEAN CORPUSCULAR VOLUME 95.3 fL (81.0-99.0); MEAN PLATELET VOLUME 9.5 fl (7.4-10.4); PLATELET 141 x1000/uL (130-400); RED BLOOD CELL COUNT 3.67 mill/uL (4.2-5.4)
[2019-12-01 09:55] LABS: CHLORIDE 105 mEq/L (98-107)
[2019-12-01 10:02] LABS: PHOSPHORUS 2.3 mg/dL (2.5-4.9)
[2019-12-01 12:00] VITALS: BP 138/60
[2019-12-01 12:56] LABS: PLATELET ESTIMATE NORMAL
[2019-12-01 16:00] VITALS: BP 107/53
[2019-12-01 17:47] VITALS: BP 107/53
== END 2019-12-01 19:00 | disposition home or self-care (01) | DRG 205 ==
LOC: ER 12:45 → 7WST 16:04 → ENRESERV 21:29 → 6WST 12-01 12:20
PROVIDERS: ADMIT Internal Medicine; ATTEND Internal Medicine
PROC: 5A1D70Z Performance of Urinary Filtration, Intermittent, Less than 6 Hours Per Day (ICD-10-PCS; principal; 2019-12-01)
DX: M94.0 Chondrocostal junction syndrome [Tietze] (principal); N18.6 End stage renal disease; N25.81 Secondary hyperparathyroidism of renal origin; R10.11 Right upper quadrant pain; N28.1 Cyst of kidney, acquired; K74.60 Unspecified cirrhosis of liver; R06.02 Shortness of breath; K21.9 Gastro-esophageal reflux disease without esophagitis; Z96.651 Presence of right artificial knee joint; D63.1 Anemia in chronic kidney disease; I10 Essential (primary) hypertension; Z82.71 Family history of polycystic kidney; Z82.49 Family history of ischemic heart disease and other diseases of the circulatory system; Z99.2 Dependence on renal dialysis; Z90.49 Acquired absence of other specified parts of digestive tract; Z88.0 Allergy status to penicillin; Z88.5 Allergy status to narcotic agent; Z79.899 Other long term (current) drug therapy
CPT/HCPCS: 36415; 71045; 74176; 80053; 83605; 83735; 83880; 84100; 84484; 85025; 86850; 86900; 93005; 99285; J1956; J8597

== ENCOUNTER 2022-10-03 15:40 | Emergency (ER) | payer MEDICARE, MEDICAID ==
[~2022-10-03] VITALS: Ht 165.1 cm; Wt 79.0 kg
[2022-10-03 15:46] VITALS: BP 128/51
== END 2022-10-03 18:55 | disposition left against medical advice (07) ==
LOC: ER 15:47
DX: Z53.21 Procedure and treatment not carried out due to patient leaving prior to being seen by health care provider (principal); I45.2 Bifascicular block; I12.0 Hypertensive chronic kidney disease with stage 5 chronic kidney disease or end stage renal disease; N18.6 End stage renal disease; Z99.2 Dependence on renal dialysis
CPT/HCPCS: 93005

== ENCOUNTER 2024-06-14 03:45 | Inpatient (IN) | payer MEDICARE, MEDICAID ==
[~2024-06-14] VITALS: Ht 160 cm; Wt 77.6 kg
[~2024-06-14 03:45] MED LIST changes: +ALBU18HF2 PO; -ALBU90AE IH; +APIX5TAB PO; +ASPI-1406 MT; +ATOR20TA PO; -CLON0.1T PO; -DIPH25CA83 PO; +FAMO20TA8 PO; -LIDO30CR TP; -METO-539 MT; +METO-539 PO; -METO5TAB86 MT; -NEPVIT PO; -OMEP20CA4 PO
[2024-06-14] MEDS: PANTOPRAZOLE SODIUM 40 MG/VIAL IV STA (03:55)
[2024-06-14 04:26] LABS: BASOPHILS % 0.5 % (0.0-2.0); EOSINOPHILS % 2.6 % (0.0-5.0); HEMATOCRIT. 27.5 % (36.0-48.0); HEMOGLOBIN. 8.6 g/dL (12.0-16.0); LYMPHOCYTES % 57.5 % (20.0-50.0); MEAN CORPUSCULAR HEMOGLOBIN 30.1 pg (28.0-32.0); MEAN CORPUSCULAR HGB CONC 31.2 g/dL (31.0-37.0); MEAN CORPUSCULAR VOLUME 96.5 fL (81.0-99.0); MEAN PLATELET VOLUME 9.8 fl (7.4-10.4); MONOCYTES % 10.8 % (2.0-8.0); NEUTROPHILS % 28.6 % (40.0-76.0); PLATELET 172 x1000/uL (130-400); RED BLOOD CELL COUNT 2.85 mill/uL (4.2-5.4); RED CELL DISTRIBUTION WIDTH 17.3 % (11.6-14.6); WHITE BLOOD COUNT 11.6 x1000/uL (4.5-11.0)
[2024-06-14 04:33] LABS: POTASSIUM 3.2 mEq/L (3.5-5.1)
[2024-06-14 04:34] LABS: CALCIUM 8.8 mg/dL (8.7-10.4)
[2024-06-14 04:39] LABS: INR 1.1; PROTHROMBIN TIME 12.5 sec (9.6-11.0)
[2024-06-14 04:52] LABS: CREATININE 5.3 mg/dL (0.6-1.0)
[2024-06-14] MEDS: PANTOPRAZOLE SODIUM 40 MG/VIAL IV NR (07:37)
[2024-06-14] MEDS ORDERED: ACETAMINOPHEN 325MG TABLET PO PRN (09:00)
[2024-06-14] MEDS ORDERED: DOCUSATE SODIUM 100MG CAPSULE PO PRN (09:00)
[2024-06-14] MEDS ORDERED: IPRATROPIUM/ALBUTEROL 0.5-3(2.5)MG/3ML NEB NEB PRN (09:00)
[2024-06-14] MEDS ORDERED: MAGNESIUM/ALUMINUM HYDROXIDE/SIMETHICONE 30ML UDC PO PRN (09:00)
[2024-06-14] MEDS ORDERED: NITROGLYCERIN 0.4MG TABLET SL SL PRN (09:00)
[2024-06-14] MEDS ORDERED: CLONIDINE 0.1MG TABLET PO PRN (09:00)
[2024-06-14] MEDS ORDERED: GUAIFENESIN 200MG/10ML SUGAR FREE UDC PO PRN (09:00)
[2024-06-14] MEDS: PANTOPRAZOLE 80 MG in SODIUM CHLORIDE 0.9% 100 ML IV SCH (09:15)
[2024-06-14] MEDS ORDERED: PANTOPRAZOLE 80 MG in SODIUM CHLORIDE 0.9% 100 ML IV SCH (10:00)
[2024-06-14] MEDS: DEXT 5%/LACTATED RINGERS 1,000 ML IV SCH (10:06)
[2024-06-14 11:02] LABS: IRON 116 ug/dL (50-170)
[2024-06-14 11:04] LABS: TOTAL IRON BINDING CAPACITY 219 ug/dl (250-425)
[2024-06-14 11:07] LABS: T4 FREE 1.21 ng/dL (0.89-1.76); THYROID STIMULATING HORMONE 8.08 uIU/mL (0.55-4.78)
[2024-06-14 12:00] VITALS: BP 92/34; PULSE 67; RESP 16; TEMP 37.00296; O2SAT 98
[2024-06-14 12:47] LABS: HEMATOCRIT 24.8 % (36.0-48.0); HEMOGLOBIN 7.8 g/dL (12.0-16.0)
[2024-06-14] MEDS: FOLIC ACID/VITAMIN B COMP W-C TABLET PO SCH (12:57)
[2024-06-14 16:43] LABS: FOLIC ACID (FOLATE) SERUM 17.33 ng/mL (>5.38); VITAMIN B12 SERUM 434 pg/mL (211-911)
[2024-06-14] MEDS ORDERED: ZOLPIDEM TARTRATE 5MG TABLET PO PRN (21:00)
[2024-06-15] VITALS (14 sets, daily range): BP systolic 98–150; BP diastolic 34–72; PULSE 71–80; RESP 14–20; TEMP 35.39172–36.696; O2SAT 95–100
[2024-06-15] MEDS: SODIUM CHLORIDE 0.9% 250 ML IV ONE
[2024-06-15 06:35] LABS: BASOPHILS % 0.5 % (0.0-2.0); DIFFERENTIAL COMMENT 0; EOSINOPHILS % 0.7 % (0.0-5.0); LYMPHOCYTES % 20.5 % (20.0-50.0); MEAN CORPUSCULAR HEMOGLOBIN 30.5 pg (28.0-32.0); MEAN CORPUSCULAR HGB CONC 32.3 g/dL (31.0-37.0); MEAN CORPUSCULAR VOLUME 94.6 fL (81.0-99.0); MEAN PLATELET VOLUME 9.4 fl (7.4-10.4); MONOCYTES % 10.5 % (2.0-8.0); NEUTROPHILS % 67.8 % (40.0-76.0); PLATELET 108 x1000/uL (130-400); RED BLOOD CELL COUNT 2.23 mill/uL (4.2-5.4); RED CELL DISTRIBUTION WIDTH 17.2 % (11.6-14.6); WHITE BLOOD COUNT 6.1 x1000/uL (4.5-11.0)
[2024-06-15 06:41] LABS: CHLORIDE 99 mEq/L (98-107); POTASSIUM 4.2 mEq/L (3.5-5.1); SODIUM 139 mEq/L (136-145)
[2024-06-15 06:45] LABS: CALCIUM 9.2 mg/dL (8.7-10.4); CARBON DIOXIDE 29 mEq/L (21-32)
[2024-06-15 06:50] LABS: GLUCOSE 116 mg/dL (70-105); UREA NITROGEN BLOOD 36 mg/dL (9-23)
[2024-06-15 06:51] LABS: ALBUMIN 3.6 g/dL (3.2-4.8)
[2024-06-15 06:52] LABS: ASPARTATE AMINOTRANSFERASE 43 IU/L (<34); BILIRUBIN TOTAL 0.2 mg/dL (0.1-1.0); PHOSPHORUS 4.1 mg/dL (2.5-4.9); PROTEIN TOTAL 6.5 g/dL (6.0-8.3)
[2024-06-15 06:53] LABS: ALANINE AMINOTRANSFERASE 20 IU/L (10-49)
[2024-06-15 06:57] LABS: CREATININE 6.4 mg/dL (0.6-1.0)
[2024-06-15 07:02] LABS: HEMOGLOBIN. 6.8 g/dL (12.0-16.0)
[2024-06-15 07:03] LABS: HEMATOCRIT. 21.1 % (36.0-48.0)
[2024-06-15] MEDS ORDERED: CLINDAMYCIN 600MG PREMIX 50 ML IV NR (09:00)
[2024-06-15] MEDS ORDERED: LIDOCAINE HCL 1% 10 MG/ML 10ML VIAL ONE (09:43)
[2024-06-15] MEDS ORDERED: LIDOCAINE 5% PATCH TOP PRN (13:15)
[2024-06-15] MEDS: ACETAMINOPHEN 325MG TABLET PO PRN (13:17)
[2024-06-15] MEDS ORDERED: LIDOCAINE HCL 1% 10 MG/ML 10ML VIAL INJ NR (16:00)
[2024-06-15] MEDS ORDERED: MORPHINE SULFATE 2 MG/ML INJ (NOT FOR IM USE) IV ONE ×2 (16:15)
[2024-06-15] MEDS ORDERED: PROPOFOL 10MG/ML 100ML 100 ML IV ONE (16:48)
[2024-06-15] MEDS ORDERED: THROMBIN (BOVINE) 5000 UNITS/VIAL TOP ONE ×2 (16:51→19:20)
[2024-06-15] MEDS ORDERED: POLYMYXIN B SULFATE 500000 UNITS/VIAL ONE (16:51)
[2024-06-15] MEDS ORDERED: BUPIVACAINE HCL/PF 0.5% (5MG/ML) 10ML ONE ×2 (16:51→18:21)
[2024-06-15] MEDS ORDERED: LIDOCAINE HCL 1% 20ML VIAL ONE ×2 (16:52→18:21)
[2024-06-15] MEDS ORDERED: HEPARIN SODIUM 1,000 UNIT/1ML VIAL IV ONE (16:52)
[2024-06-15] MEDS ORDERED: ONDANSETRON HCL 4MG/2ML INJ ONE (17:01)
[2024-06-15] MEDS ORDERED: FENTANYL CITRATE/PF 50MCG/ML 2ML VIAL ONE (17:02)
[2024-06-15] MEDS ORDERED: ALBUMIN HUMAN 12.5G/250ML (5%) IV ONE ×2 (17:04→18:27)
[2024-06-15] MEDS ORDERED: CEFAZOLIN SODIUM 1000MG/VIAL ONE (17:11)
[2024-06-15] MEDS ORDERED: DEXAMETHASONE 4MG/ML 1ML VIAL ONE (17:39)
[2024-06-15] MEDS ORDERED: CALCIUM CHLORIDE 1GM/10ML SYR IV ONE (17:41)
[2024-06-15 21:52] LABS: BG BASE EXCESS 1.8 mmol/L (-2.0-3.0); BG CARBOXYHEMOGLOBIN 0.9 % (0.5-1.5); BG FRACTION INSPIRED OXYGEN 32; BG HCO3 ACT 26.2 mmol/L (21.0-28.0); BG METHEMOGLOBIN 0.3 % (0.5-1.5); BG OXYHEMOGLOBIN 95.8 % (94.0-98.0); BG PCO2 40.6 mmHg (32.0-45.0); BG PH 7.428 (7.350-7.450); BG PO2 87.3 mmHg (83.0-108.0); BG SAMPLE SITE RIGHT RADIAL; BG TOTAL HEMOGLOBIN 10.9 g/dL (12.0-16.0); BG VENT MODE NASAL CANNULA
[2024-06-15] MEDS ORDERED: VANCOMYCIN 1G PREMIX 200 ML IV SCH (22:00)
[2024-06-15 22:06] LABS: DIFFERENTIAL COMMENT 1; HEMATOCRIT. 31.8 % (36.0-48.0); HEMOGLOBIN. 10.6 g/dL (12.0-16.0); MEAN CORPUSCULAR HEMOGLOBIN 29.8 pg (28.0-32.0); MEAN CORPUSCULAR HGB CONC 33.2 g/dL (31.0-37.0); MEAN CORPUSCULAR VOLUME 89.7 fL (81.0-99.0); MEAN PLATELET VOLUME 9.5 fl (7.4-10.4); PLATELET 100 x1000/uL (130-400); RED BLOOD CELL COUNT 3.54 mill/uL (4.2-5.4); RED CELL DISTRIBUTION WIDTH 15.8 % (11.6-14.6); WHITE BLOOD COUNT 15.3 x1000/uL (4.5-11.0)
[2024-06-15 22:11] LABS: CHLORIDE 101 mEq/L (98-107); POTASSIUM 4.6 mEq/L (3.5-5.1); SODIUM 138 mEq/L (136-145)
[2024-06-15 22:12] LABS: CARBON DIOXIDE 28 mEq/L (21-32)
[2024-06-15 22:13] LABS: CALCIUM 9.5 mg/dL (8.7-10.4)
[2024-06-15] MEDS ORDERED: HEPARIN SODIUM 1,000 UNIT/1ML VIAL IV NR (22:15)
[2024-06-15 22:17] LABS: GLUCOSE 123 mg/dL (70-105)
[2024-06-15 22:18] LABS: UREA NITROGEN BLOOD 37 mg/dL (9-23)
[2024-06-15 22:19] LABS: ALANINE AMINOTRANSFERASE 21 IU/L (10-49)
[2024-06-15 22:20] LABS: ALBUMIN 3.9 g/dL (3.2-4.8); ASPARTATE AMINOTRANSFERASE 41 IU/L (<34); BILIRUBIN TOTAL 1.3 mg/dL (0.1-1.0); PROTEIN TOTAL 6.8 g/dL (6.0-8.3)
[2024-06-15 22:32] LABS: PLATELET ESTIMATE DECREASED
[2024-06-15] MEDS: MIDAZOLAM HCL 2 MG/2 ML VIAL IV NR (22:40)
[2024-06-15] MEDS ORDERED: MEROPENEM 1G/100ML 100 ML IV SCH ×2 (23:00)
[2024-06-16] VITALS (75 sets, daily range): BP systolic 82–170; BP diastolic 38–134; PULSE 58–107; RESP 13–29; TEMP 36.16956–36.6696; O2SAT 98–100
[2024-06-16] MEDS ORDERED: VANCOMYCIN 1.25GM PMX (XELLIA) 250 ML IV NR (01:00)
[2024-06-16] MEDS: NOREPINEPHRINE 8MG/250ML PMX 250 ML IV PRN (05:13)
[2024-06-16] MEDS: MORPHINE SULFATE 2 MG/ML INJ (NOT FOR IM USE) IV NR (05:58)
[2024-06-16] MEDS ORDERED: MEROPENEM 1G/100ML 100 ML IV SCH (06:00)
[2024-06-16 06:10] LABS: BASOPHILS % 0.1 % (0.0-2.0); HEMATOCRIT. 37.5 % (36.0-48.0); LYMPHOCYTES % 8.2 % (20.0-50.0); MEAN CORPUSCULAR HEMOGLOBIN 28.8 pg (28.0-32.0); MEAN CORPUSCULAR HGB CONC 31.9 g/dL (31.0-37.0); MEAN CORPUSCULAR VOLUME 90.3 fL (81.0-99.0); MEAN PLATELET VOLUME 9.9 fl (7.4-10.4); MONOCYTES % 8.2 % (2.0-8.0); NEUTROPHILS % 83.5 % (40.0-76.0); PLATELET 123 x1000/uL (130-400); RED BLOOD CELL COUNT 4.15 mill/uL (4.2-5.4)
[2024-06-16] MEDS: VANCOMYCIN 1.25GM PMX (XELLIA) 250 ML IV NR (06:29)
[2024-06-16 06:30] LABS: POTASSIUM 5.2 mEq/L (3.5-5.1)
[2024-06-16 06:31] LABS: CALCIUM 9.9 mg/dL (8.7-10.4)
[2024-06-16 06:38] LABS: PHOSPHORUS 3.7 mg/dL (2.5-4.9)
[2024-06-16 06:43] LABS: CREATININE 5.6 mg/dL (0.6-1.0)
[2024-06-16] MEDS: MEROPENEM 1G/100ML 100 ML IV SCH (08:10)
[2024-06-17] VITALS (104 sets, daily range): BP systolic 71–227; BP diastolic 36–106; PULSE 48–99; RESP 7–38; TEMP 35.89176–36.72516; O2SAT 95–100
[2024-06-17 07:19] LABS: BASOPHILS % 0.5 % (0.0-2.0); EOSINOPHILS % 1.1 % (0.0-5.0); HEMATOCRIT. 32.7 % (36.0-48.0); HEMOGLOBIN. 10.8 g/dL (12.0-16.0); LYMPHOCYTES % 8.8 % (20.0-50.0); MEAN CORPUSCULAR VOLUME 90.9 fL (81.0-99.0); MEAN PLATELET VOLUME 9.9 fl (7.4-10.4); MONOCYTES % 13.1 % (2.0-8.0); NEUTROPHILS % 76.5 % (40.0-76.0); PLATELET 117 x1000/uL (130-400); RED CELL DISTRIBUTION WIDTH 17.7 % (11.6-14.6); WHITE BLOOD COUNT 10.1 x1000/uL (4.5-11.0)
[2024-06-17 07:31] LABS: CALCIUM 8.6 mg/dL (8.7-10.4); POTASSIUM 4.8 mEq/L (3.5-5.1)
[2024-06-17 07:39] LABS: PHOSPHORUS 2.9 mg/dL (2.5-4.9)
[2024-06-17 07:40] LABS: CREATININE 6.9 mg/dL (0.6-1.0)
[2024-06-17] MEDS: SORBITOL 70% SOLN 30ML PO NR (10:18)
[2024-06-17] MEDS: MIDODRINE HCL 2.5MG TABLET PO SCH (17:55)
[2024-06-17 20:36] LABS: TROPONIN I HIGH SENSITIVITY 209 ng/L (3.0-34)
[2024-06-18] VITALS (94 sets, daily range): BP systolic 84–161; BP diastolic 36–116; PULSE 56–96; RESP 0–31; TEMP 36.3918–36.78072; O2SAT 100
[2024-06-18 07:20] LABS: HEMOGLOBIN. 10.4 g/dL (12.0-16.0); MEAN CORPUSCULAR HGB CONC 32.5 g/dL (31.0-37.0); MEAN CORPUSCULAR VOLUME 92.4 fL (81.0-99.0); MEAN PLATELET VOLUME 9.6 fl (7.4-10.4); PLATELET 110 x1000/uL (130-400); RED BLOOD CELL COUNT 3.47 mill/uL (4.2-5.4); RED CELL DISTRIBUTION WIDTH 17.4 % (11.6-14.6)
[2024-06-18 07:26] LABS: DIFFERENTIAL COMMENT 1
[2024-06-18 07:28] LABS: CHLORIDE 104 mEq/L (98-107); POTASSIUM 4.3 mEq/L (3.5-5.1); SODIUM 139 mEq/L (136-145)
[2024-06-18 07:29] LABS: CALCIUM 9.2 mg/dL (8.7-10.4); CARBON DIOXIDE 26 mEq/L (21-32)
[2024-06-18 07:34] LABS: GLUCOSE 107 mg/dL (70-105); UREA NITROGEN BLOOD 23 mg/dL (9-23)
[2024-06-18 07:36] LABS: ALANINE AMINOTRANSFERASE < 7 IU/L (10-49); ALBUMIN 3.3 g/dL (3.2-4.8); ASPARTATE AMINOTRANSFERASE 27 IU/L (<34); BILIRUBIN DIRECT 0.1 mg/dL (<=3.0); BILIRUBIN TOTAL 0.2 mg/dL (0.1-1.0)
[2024-06-18 07:53] LABS: CREATININE 5.6 mg/dL (0.6-1.0)
[2024-06-18 07:56] LABS: TROPONIN I HIGH SENSITIVITY 174 ng/L (3.0-34)
[2024-06-18] MEDS: PANTOPRAZOLE SODIUM 40 MG/VIAL IV SCH (11:08)
[2024-06-18] MEDS: VANCOMYCIN 1GM PMX (XELLIA) 200 ML IV SCH (11:08)
[2024-06-18] MEDS: MIDODRINE HCL 5MG TABLET PO SCH (14:18)
[2024-06-18] MEDS ORDERED: NALOXONE HCL 0.4MG/ML VIAL IV PRN (15:00)
[2024-06-18] MEDS: HYDROCODONE/ACETAMINOPHEN 5/325MG TABLET PO PRN (21:22)
[2024-06-19] VITALS (70 sets, daily range): BP systolic 75–160; BP diastolic 40–90; PULSE 50–99; RESP 7–30; TEMP 36.114–37.00296; O2SAT 98–100
[2024-06-19 05:04] LABS: PLATELET ESTIMATE NORMAL
[2024-06-19 06:08] LABS: HEMATOCRIT. 31.5 % (36.0-48.0); HEMOGLOBIN. 10.5 g/dL (12.0-16.0); MEAN CORPUSCULAR HEMOGLOBIN 31.2 pg (28.0-32.0); MEAN CORPUSCULAR HGB CONC 33.4 g/dL (31.0-37.0); MEAN CORPUSCULAR VOLUME 93.6 fL (81.0-99.0); MEAN PLATELET VOLUME 9.2 fl (7.4-10.4); PLATELET 108 x1000/uL (130-400); RED BLOOD CELL COUNT 3.37 mill/uL (4.2-5.4); RED CELL DISTRIBUTION WIDTH 17.4 % (11.6-14.6); WHITE BLOOD COUNT 6.4 x1000/uL (4.5-11.0)
[2024-06-19 06:21] LABS: CARBON DIOXIDE 27 mEq/L (21-32); CHLORIDE 107 mEq/L (98-107); POTASSIUM 4.8 mEq/L (3.5-5.1); SODIUM 142 mEq/L (136-145)
[2024-06-19 06:22] LABS: CALCIUM 9.1 mg/dL (8.7-10.4)
[2024-06-19 06:27] LABS: GLUCOSE 93 mg/dL (70-105); UREA NITROGEN BLOOD 36 mg/dL (9-23)
[2024-06-19 06:29] LABS: DIFFERENTIAL COMMENT 1; THYROID STIMULATING HORMONE 4.51 uIU/mL (0.55-4.78)
[2024-06-19 07:11] LABS: CREATININE 7.3 mg/dL (0.6-1.0)
[2024-06-19 07:13] LABS: TROPONIN I HIGH SENSITIVITY 82 ng/L (3.0-34)
[2024-06-19] MEDS: ENOXAPARIN 80MG/0.8ML SYR SUBCUT SCH (08:45)
[2024-06-19 13:14] LABS: ANISOCYTOSIS 1+; PLATELET ESTIMATE SLIGHTLY DECREASED
[2024-06-19 20:41] LABS: HEPATITIS B SURFACE ANTIGEN NEGATIVE (Negative)
[2024-06-19 21:01] LABS: HEPATITIS A AB IGM NEGATIVE (Negative)
[2024-06-19 21:02] LABS: HEPATITIS B CORE AB IGM NEGATIVE (Negative); HEPATITIS C AB NON REACTIVE (Neg) (Negative)
[2024-06-19] MEDS: ONDANSETRON HCL 4MG/2ML INJ IV PRN (22:28)
[2024-06-20] VITALS: BP 105/49; PULSE 61; RESP 16; TEMP 36.16956; O2SAT 100
[2024-06-20 04:00] VITALS: BP 91/46; PULSE 66; RESP 20; TEMP 36.89184; O2SAT 99
[2024-06-20 08:37] LABS: CHLORIDE 103 mEq/L (98-107); POTASSIUM 4.4 mEq/L (3.5-5.1); SODIUM 137 mEq/L (136-145)
[2024-06-20 08:38] LABS: CARBON DIOXIDE 22 mEq/L (21-32)
[2024-06-20 08:43] LABS: GLUCOSE 86 mg/dL (70-105); UREA NITROGEN BLOOD 26 mg/dL (9-23)
[2024-06-20 08:45] LABS: ALANINE AMINOTRANSFERASE < 7 IU/L (10-49); ALBUMIN 3.4 g/dL (3.2-4.8); ASPARTATE AMINOTRANSFERASE 19 IU/L (<34); BILIRUBIN DIRECT 0.1 mg/dL (<=3.0)
[2024-06-20 08:46] LABS: BILIRUBIN TOTAL 0.3 mg/dL (0.1-1.0); PHOSPHORUS 2.8 mg/dL (2.5-4.9); PROTEIN TOTAL 6.1 g/dL (6.0-8.3)
[2024-06-20 08:47] LABS: CREATININE 6.7 mg/dL (0.6-1.0)
[2024-06-20 08:57] LABS: HEMATOCRIT. 30.8 % (36.0-48.0); HEMOGLOBIN. 9.7 g/dL (12.0-16.0); MEAN CORPUSCULAR HEMOGLOBIN 29.6 pg (28.0-32.0); MEAN CORPUSCULAR HGB CONC 31.6 g/dL (31.0-37.0); MEAN CORPUSCULAR VOLUME 93.4 fL (81.0-99.0); MEAN PLATELET VOLUME 9.2 fl (7.4-10.4); PLATELET 119 x1000/uL (130-400); RED CELL DISTRIBUTION WIDTH 17.5 % (11.6-14.6); WHITE BLOOD COUNT 5.6 x1000/uL (4.5-11.0)
[2024-06-20 09:01] LABS: DIFFERENTIAL COMMENT 1
[2024-06-20 11:21] LABS: ANISOCYTOSIS 2+; PLATELET ESTIMATE SLIGHTLY DECREASED
[2024-06-20 12:00] VITALS: BP 136/69; PULSE 66; RESP 20; TEMP 36.55848; O2SAT 98
[2024-06-20 16:00] VITALS: BP 99/52; PULSE 89; RESP 16; TEMP 36.72516; O2SAT 95
[2024-06-20 20:00] VITALS: BP 142/62; PULSE 71; RESP 20; TEMP 36.28068; O2SAT 95
[2024-06-21] VITALS: BP 135/73; PULSE 94; RESP 18; TEMP 36.33624; O2SAT 98
[2024-06-21 04:00] VITALS: BP 140/55; PULSE 68; RESP 20; TEMP 36.28068; O2SAT 98
[2024-06-21 07:25] LABS: CHLORIDE 103 mEq/L (98-107); POTASSIUM 4.5 mEq/L (3.5-5.1); SODIUM 136 mEq/L (136-145)
[2024-06-21 07:27] LABS: CALCIUM 8.9 mg/dL (8.7-10.4); CARBON DIOXIDE 22 mEq/L (21-32)
[2024-06-21 07:30] LABS: UREA NITROGEN BLOOD 37 mg/dL (9-23)
[2024-06-21 07:32] LABS: GLUCOSE 97 mg/dL (70-105)
[2024-06-21 07:33] LABS: ALANINE AMINOTRANSFERASE < 7 IU/L (10-49)
[2024-06-21 07:34] LABS: ALBUMIN 3.3 g/dL (3.2-4.8); ASPARTATE AMINOTRANSFERASE 16 IU/L (<34); BILIRUBIN DIRECT 0.1 mg/dL (<=3.0)
[2024-06-21 07:35] LABS: BILIRUBIN TOTAL 0.3 mg/dL (0.1-1.0); PHOSPHORUS 3.2 mg/dL (2.5-4.9)
[2024-06-21 07:42] LABS: HEMATOCRIT. 28.4 % (36.0-48.0); HEMOGLOBIN. 9.5 g/dL (12.0-16.0); MEAN CORPUSCULAR HEMOGLOBIN 30.4 pg (28.0-32.0); MEAN CORPUSCULAR HGB CONC 33.5 g/dL (31.0-37.0); MEAN CORPUSCULAR VOLUME 90.9 fL (81.0-99.0); MEAN PLATELET VOLUME 9.3 fl (7.4-10.4); PLATELET 143 x1000/uL (130-400); RED BLOOD CELL COUNT 3.12 mill/uL (4.2-5.4); RED CELL DISTRIBUTION WIDTH 16.7 % (11.6-14.6); WHITE BLOOD COUNT 5.6 x1000/uL (4.5-11.0)
[2024-06-21 07:54] LABS: DIFFERENTIAL COMMENT 1
[2024-06-21 07:55] LABS: CREATININE 8.1 mg/dL (0.6-1.0)
[2024-06-21 08:00] VITALS: BP 120/86; PULSE 86; RESP 18; TEMP 37.00296; O2SAT 95
[2024-06-21 10:41] LABS: ERYTHROCYTE SEDIMENTATION RATE 21 mm/hr (0-42)
[2024-06-21 12:00] VITALS: BP 148/86; PULSE 78; RESP 20; TEMP 36.72516; O2SAT 98
[2024-06-21] MEDS: MIDODRINE HCL 2.5MG TABLET PO SCH (14:00)
[2024-06-21 16:00] VITALS: BP 130/79; PULSE 80; RESP 16; TEMP 36.72516; O2SAT 98
[2024-06-21 20:00] VITALS: BP 112/48; PULSE 79; RESP 18; TEMP 36.05844; O2SAT 97
[2024-06-21 20:13] LABS: PLATELET ESTIMATE NORMAL
[2024-06-21] MEDS: PANTOPRAZOLE 40MG DR TABLET PO SCH (21:05)
[2024-06-22] VITALS (10 sets, daily range): BP systolic 102–145; BP diastolic 52–74; PULSE 62–87; RESP 18–20; TEMP 36.22512–37.00296; O2SAT 97–100
[2024-06-22 06:28] LABS: POTASSIUM 4.7 mEq/L (3.5-5.1)
[2024-06-22 06:29] LABS: CALCIUM 8.9 mg/dL (8.7-10.4)
[2024-06-22 06:36] LABS: PHOSPHORUS 4.3 mg/dL (2.5-4.9)
[2024-06-22 06:51] LABS: CREATININE 9.5 mg/dL (0.6-1.0)
[2024-06-22 07:11] LABS: HEMATOCRIT. 28.6 % (36.0-48.0); HEMOGLOBIN. 9.3 g/dL (12.0-16.0); MEAN CORPUSCULAR HEMOGLOBIN 29.5 pg (28.0-32.0); MEAN CORPUSCULAR HGB CONC 32.5 g/dL (31.0-37.0); MEAN PLATELET VOLUME 9.1 fl (7.4-10.4); PLATELET 151 x1000/uL (130-400); RED BLOOD CELL COUNT 3.14 mill/uL (4.2-5.4); RED CELL DISTRIBUTION WIDTH 17.1 % (11.6-14.6); WHITE BLOOD COUNT 5.6 x1000/uL (4.5-11.0)
[2024-06-22 07:19] LABS: DIFFERENTIAL COMMENT 1
[2024-06-22] MEDS: EPOETIN ALFA-EPBX 4,000 UNIT/ML VIAL SUBCUT SCH (22:02)
[2024-06-22 23:07] LABS: PLATELET ESTIMATE NORMAL
[2024-06-23 00:14] VITALS: BP 132/61; PULSE 72; RESP 18; TEMP 37.16964; O2SAT 97
[2024-06-23 04:00] VITALS: BP 125/66; PULSE 73; RESP 18; TEMP 37.11408; O2SAT 97
[2024-06-23 06:39] LABS: BASOPHILS % 0.4 % (0.0-2.0); EOSINOPHILS % 4.2 % (0.0-5.0); HEMOGLOBIN. 9.3 g/dL (12.0-16.0); LYMPHOCYTES % 17.9 % (20.0-50.0); MEAN CORPUSCULAR HEMOGLOBIN 29.6 pg (28.0-32.0); MEAN CORPUSCULAR VOLUME 92.6 fL (81.0-99.0); MONOCYTES % 13.2 % (2.0-8.0); NEUTROPHILS % 64.3 % (40.0-76.0); PLATELET 162 x1000/uL (130-400); RED BLOOD CELL COUNT 3.13 mill/uL (4.2-5.4); RED CELL DISTRIBUTION WIDTH 17.8 % (11.6-14.6); WHITE BLOOD COUNT 5.5 x1000/uL (4.5-11.0)
[2024-06-23 06:45] LABS: POTASSIUM 4.5 mEq/L (3.5-5.1)
[2024-06-23 07:46] LABS: CREATININE 7.9 mg/dL (0.6-1.0)
[2024-06-23 08:00] VITALS: BP 178/77; PULSE 75; RESP 20; TEMP 37.00296; O2SAT 100
[2024-06-23 12:00] VITALS: BP 113/61; PULSE 83; RESP 18; TEMP 36.00288; O2SAT 100
[2024-06-23 16:35] VITALS: BP 138/61; PULSE 78; RESP 20; TEMP 37.16964; O2SAT 100
[2024-06-23 20:00] VITALS: BP 129/58; PULSE 85; RESP 18; TEMP 36.22512; O2SAT 98
[2024-06-23] MEDS ORDERED: METOPROLOL TARTRATE 25MG TABLET PO SCH (21:00)
[2024-06-23] MEDS: METOPROLOL TARTRATE 25MG TABLET PO SCH (21:29)
[2024-06-24] VITALS (10 sets, daily range): BP systolic 105–145; BP diastolic 50–74; PULSE 66–78; RESP 18–20; TEMP 36.00288–37.00296; O2SAT 96–100
[2024-06-24 07:09] LABS: CALCIUM 9.1 mg/dL (8.7-10.4)
[2024-06-24 07:17] LABS: PHOSPHORUS 4.9 mg/dL (2.5-4.9)
[2024-06-24 07:39] LABS: CREATININE 9.7 mg/dL (0.6-1.0)
[2024-06-24 08:04] LABS: BASOPHILS % 0.8 % (0.0-2.0); EOSINOPHILS % 4.3 % (0.0-5.0); HEMOGLOBIN. 9.4 g/dL (12.0-16.0); LYMPHOCYTES % 20.9 % (20.0-50.0); MEAN CORPUSCULAR HEMOGLOBIN 29.1 pg (28.0-32.0); MEAN CORPUSCULAR HGB CONC 31.4 g/dL (31.0-37.0); MEAN CORPUSCULAR VOLUME 92.7 fL (81.0-99.0); MEAN PLATELET VOLUME 9.4 fl (7.4-10.4); MONOCYTES % 13.5 % (2.0-8.0); NEUTROPHILS % 60.5 % (40.0-76.0); PLATELET 162 x1000/uL (130-400); RED BLOOD CELL COUNT 3.23 mill/uL (4.2-5.4); RED CELL DISTRIBUTION WIDTH 17.6 % (11.6-14.6); WHITE BLOOD COUNT 5.3 x1000/uL (4.5-11.0)
[2024-06-25] VITALS (11 sets, daily range): BP systolic 111–174; BP diastolic 51–79; PULSE 72–89; RESP 15–29; TEMP 36.16956–36.6696; O2SAT 96–100
[2024-06-25 08:05] LABS: BASOPHILS % 0.6 % (0.0-2.0); EOSINOPHILS % 4.1 % (0.0-5.0); HEMATOCRIT. 28.1 % (36.0-48.0); HEMOGLOBIN. 9.2 g/dL (12.0-16.0); LYMPHOCYTES % 19.1 % (20.0-50.0); MEAN CORPUSCULAR HEMOGLOBIN 30.2 pg (28.0-32.0); MEAN CORPUSCULAR HGB CONC 32.9 g/dL (31.0-37.0); MEAN CORPUSCULAR VOLUME 91.9 fL (81.0-99.0); MEAN PLATELET VOLUME 9.2 fl (7.4-10.4); MONOCYTES % 14.1 % (2.0-8.0); NEUTROPHILS % 62.1 % (40.0-76.0); PLATELET 166 x1000/uL (130-400); RED BLOOD CELL COUNT 3.06 mill/uL (4.2-5.4); RED CELL DISTRIBUTION WIDTH 17.4 % (11.6-14.6); WHITE BLOOD COUNT 5.1 x1000/uL (4.5-11.0)
[2024-06-25 08:12] LABS: POTASSIUM 4.7 mEq/L (3.5-5.1)
[2024-06-25 08:14] LABS: CALCIUM 8.9 mg/dL (8.7-10.4)
[2024-06-25 08:24] LABS: CREATININE 8.5 mg/dL (0.6-1.0)
[2024-06-25] MEDS ORDERED: LIDOCAINE HCL 1% 10 MG/ML 10ML VIAL ONE (09:56)
[2024-06-25] MEDS ORDERED: FENTANYL CITRATE/PF 50MCG/ML 2ML VIAL ONE (09:57)
[2024-06-25] MEDS ORDERED: APIX2.5T MT (14:50)
[2024-06-25] MEDS ORDERED: METO25TA6 MT (14:50)
== END 2024-06-25 20:20 | disposition home health service (06) | DRG 252 ==
LOC: ER 03:45 → 5WST 05:52 → 8WST 17:57 → CVICU 06-15 23:14 → 7WST 06-19 18:00
PROVIDERS: ADMIT Internal Medicine; ATTEND Internal Medicine
PROC: 03L70ZZ Occlusion of Right Brachial Artery, Open Approach (ICD-10-PCS; principal; 2024-06-15)
PROC: 03PY0DZ Removal of Intraluminal Device from Upper Artery, Open Approach (ICD-10-PCS; 2024-06-15)
PROC: 06HY33Z Insertion of Infusion Device into Lower Vein, Percutaneous Approach (ICD-10-PCS; 2024-06-15)
PROC: B54CZZA Ultrasonography of Left Lower Extremity Veins, Guidance (ICD-10-PCS; 2024-06-15)
PROC: 30233N1 Transfusion of Nonautologous Red Blood Cells into Peripheral Vein, Percutaneous Approach (ICD-10-PCS; 2024-06-15)
PROC: 5A1D70Z Performance of Urinary Filtration, Intermittent, Less than 6 Hours Per Day (ICD-10-PCS; 2024-06-15)
PROC: 5A1D70Z Performance of Urinary Filtration, Intermittent, Less than 6 Hours Per Day (ICD-10-PCS; 2024-06-17)
PROC: 5A1D70Z Performance of Urinary Filtration, Intermittent, Less than 6 Hours Per Day (ICD-10-PCS; 2024-06-19)
PROC: 5A1D70Z Performance of Urinary Filtration, Intermittent, Less than 6 Hours Per Day (ICD-10-PCS; 2024-06-22)
PROC: 5A1D70Z Performance of Urinary Filtration, Intermittent, Less than 6 Hours Per Day (ICD-10-PCS; 2024-06-24)
PROC: 06PYX3Z Removal of Infusion Device from Lower Vein, External Approach (ICD-10-PCS; 2024-06-25)
PROC: 06H033Z Insertion of Infusion Device into Inferior Vena Cava, Percutaneous Approach (ICD-10-PCS; 2024-06-25)
PROC: 0JH63XZ Insertion of Tunneled Vascular Access Device into Chest Subcutaneous Tissue and Fascia, Percutaneous Approach (ICD-10-PCS; 2024-06-25)
PROC: B5191ZA Fluoroscopy of Inferior Vena Cava using Low Osmolar Contrast, Guidance (ICD-10-PCS; 2024-06-25)
DX: T82.838A Hemorrhage due to vascular prosthetic devices, implants and grafts, initial encounter (principal); J96.00 Acute respiratory failure, unspecified whether with hypoxia or hypercapnia; N18.6 End stage renal disease; I13.2 Hypertensive heart and chronic kidney disease with heart failure and with stage 5 chronic kidney disease, or end stage renal disease; D62 Acute posthemorrhagic anemia; Q61.3 Polycystic kidney, unspecified; Q44.6 Cystic disease of liver; N25.81 Secondary hyperparathyroidism of renal origin; R78.81 Bacteremia; I82.401 Acute embolism and thrombosis of unspecified deep veins of right lower extremity; T82.7XXA Infection and inflammatory reaction due to other cardiac and vascular devices, implants and grafts, initial encounter; E87.6 Hypokalemia; I50.9 Heart failure, unspecified; B95.62 Methicillin resistant Staphylococcus aureus infection as the cause of diseases classified elsewhere; E78.5 Hyperlipidemia, unspecified; G89.29 Other chronic pain; I45.10 Unspecified right bundle-branch block; I49.1 Atrial premature depolarization; E86.1 Hypovolemia; K21.9 Gastro-esophageal reflux disease without esophagitis; E03.9 Hypothyroidism, unspecified; K42.9 Umbilical hernia without obstruction or gangrene; G62.9 Polyneuropathy, unspecified; I95.89 Other hypotension; K74.60 Unspecified cirrhosis of liver; Z96.651 Presence of right artificial knee joint; Z79.82 Long term (current) use of aspirin; Z79.899 Other long term (current) drug therapy; Z82.49 Family history of ischemic heart disease and other diseases of the circulatory system; Z86.718 Personal history of other venous thrombosis and embolism; Z99.2 Dependence on renal dialysis; Z86.73 Personal history of transient ischemic attack (TIA), and cerebral infarction without residual deficits; Y84.1 Kidney dialysis as the cause of abnormal reaction of the patient, or of later complication, without mention of misadventure at the time of the procedure; Y92.89 Other specified places as the place of occurrence of the external cause
CPT/HCPCS: 36415; 36556; 36558; 36589; 36600; 71045; 74176; 76937; 77001; 80048; 80053; 80076; 80202; 82375; 82607; 82746; 82805; 82962; 83036; 83540; 83550; 83735; 84100; 84439; 84443; 84484; 85014; 85018; 85025; 85651; 86705; 86709; 86850; 86900; 86920; 87070; 87075; 87077; 87186; 87340; 88304; 90935; 92610; 93005; 93306; 93970; 97116; 97162; 97166; 99285; C1750; C1752; C1769; C1887; J0690; J0885; J1100; J1642; J1644; J1650; J2185; J2250; J2270; J2405; J2470; J2704; J3010; J3370; J3490; J7050; P9016; P9041

== ENCOUNTER 2024-06-29 11:43 | Inpatient (IN) | payer MEDICARE, MEDICAID ==
[~2024-06-29] VITALS: Ht 157.5 cm; Wt 74.8 kg
[2024-06-29] MEDS: VANCOMYCIN 500MG PREMIX 100 ML IV SCH
[~2024-06-29 11:43] MED LIST changes: +APIX2.5T MT; -APIX5TAB PO; -METO-539 PO; +METO25TA6 MT
[2024-06-29 12:55] LABS: BASOPHILS % 0.4 % (0.0-2.0); EOSINOPHILS % 1.6 % (0.0-5.0); HEMOGLOBIN. 9.8 g/dL (12.0-16.0); MEAN CORPUSCULAR HEMOGLOBIN 28.8 pg (28.0-32.0); MEAN CORPUSCULAR HGB CONC 31.5 g/dL (31.0-37.0); MEAN CORPUSCULAR VOLUME 91.5 fL (81.0-99.0); MONOCYTES % 8.6 % (2.0-8.0); NEUTROPHILS % 80.4 % (40.0-76.0); PLATELET 209 x1000/uL (130-400); RED BLOOD CELL COUNT 3.39 mill/uL (4.2-5.4); RED CELL DISTRIBUTION WIDTH 17.3 % (11.6-14.6); WHITE BLOOD COUNT 8.9 x1000/uL (4.5-11.0)
[2024-06-29 13:09] LABS: CHLORIDE 100 mEq/L (98-107); POTASSIUM 3.7 mEq/L (3.5-5.1); SODIUM 137 mEq/L (136-145)
[2024-06-29 13:10] LABS: CALCIUM 8.9 mg/dL (8.7-10.4); CARBON DIOXIDE 27 mEq/L (21-32)
[2024-06-29 13:15] LABS: GLUCOSE 116 mg/dL (70-105); UREA NITROGEN BLOOD 16 mg/dL (9-23)
[2024-06-29 13:17] LABS: ALANINE AMINOTRANSFERASE < 7 IU/L (10-49); ALBUMIN 3.7 g/dL (3.2-4.8); ASPARTATE AMINOTRANSFERASE 18 IU/L (<34); BILIRUBIN TOTAL 0.4 mg/dL (0.1-1.0); PHOSPHORUS 2.3 mg/dL (2.5-4.9); PROTEIN TOTAL 6.7 g/dL (6.0-8.3)
[2024-06-29 14:13] LABS: CREATININE 5.9 mg/dL (0.6-1.0)
[2024-06-29 14:15] LABS: TROPONIN I HIGH SENSITIVITY 35 ng/L (3.0-34)
[2024-06-29] MEDS ORDERED: ACETAMINOPHEN 325MG TABLET PO PRN (17:15)
[2024-06-29] MEDS ORDERED: IPRATROPIUM/ALBUTEROL 0.5-3(2.5)MG/3ML NEB HHN PRN (17:15)
[2024-06-29] MEDS ORDERED: DOCUSATE SODIUM 100MG CAPSULE PO PRN (17:15)
[2024-06-29] MEDS ORDERED: CLONIDINE 0.1MG TABLET PO PRN (17:15)
[2024-06-29] MEDS ORDERED: ONDANSETRON HCL 4MG/2ML INJ IV PRN (17:15)
[2024-06-29] MEDS ORDERED: HYDROCODONE/ACETAMINOPHEN 5/325MG TABLET PO PRN ×2 (17:15→17:30)
[2024-06-29 17:33] LABS: TROPONIN I HIGH SENSITIVITY 57 ng/L (3.0-34)
[2024-06-30] VITALS (9 sets, daily range): BP systolic 104–144; BP diastolic 41–78; PULSE 63–84; RESP 17–19; TEMP 36.28068–36.61404; O2SAT 96–100
[2024-06-30 02:49] LABS: BASOPHILS % 0.4 % (0.0-2.0); EOSINOPHILS % 2.4 % (0.0-5.0); HEMATOCRIT. 32.5 % (36.0-48.0); LYMPHOCYTES % 11.3 % (20.0-50.0); MEAN CORPUSCULAR HEMOGLOBIN 28.8 pg (28.0-32.0); MEAN CORPUSCULAR HGB CONC 30.7 g/dL (31.0-37.0); MEAN CORPUSCULAR VOLUME 93.9 fL (81.0-99.0); MEAN PLATELET VOLUME 9.1 fl (7.4-10.4); MONOCYTES % 9.8 % (2.0-8.0); NEUTROPHILS % 76.1 % (40.0-76.0); PLATELET 202 x1000/uL (130-400); RED BLOOD CELL COUNT 3.47 mill/uL (4.2-5.4); RED CELL DISTRIBUTION WIDTH 17.7 % (11.6-14.6); WHITE BLOOD COUNT 6.1 x1000/uL (4.5-11.0)
[2024-06-30 02:55] LABS: POTASSIUM 5.2 mEq/L (3.5-5.1)
[2024-06-30 02:56] LABS: CALCIUM 8.9 mg/dL (8.7-10.4)
[2024-06-30 03:17] LABS: CREATININE 7.1 mg/dL (0.6-1.0)
[2024-06-30] MEDS: APIXABAN 2.5 MG TABLET PO SCH (12:31)
[2024-06-30] MEDS: PANTOPRAZOLE 40MG DR TABLET PO SCH (12:31)
[2024-07-01 00:31] VITALS: BP 133/73; PULSE 63; RESP 19; TEMP 36.61404; O2SAT 100
[2024-07-01 04:00] VITALS: BP 149/66; PULSE 57; RESP 19; TEMP 36.6696; O2SAT 99
[2024-07-01 08:00] VITALS: BP 162/69; PULSE 70; RESP 19; TEMP 36.33624; O2SAT 99
[2024-07-01] MEDS: FOLIC ACID/VITAMIN B COMP W-C TABLET PO SCH (09:17)
[2024-07-01] MEDS: ACETAMINOPHEN 325MG TABLET PO PRN (09:18)
[2024-07-01] MEDS ORDERED: VANCOMYCIN 500MG PREMIX 100 ML IV NR (11:30)
[2024-07-01 12:02] VITALS: BP 124/65; PULSE 56; RESP 17; TEMP 36.61404
[2024-07-01 16:00] VITALS: BP 144/85; PULSE 67; RESP 18; TEMP 36.50292
[2024-07-01 18:44] LABS: BASOPHILS % 0.8 % (0.0-2.0); EOSINOPHILS % 4.7 % (0.0-5.0); HEMATOCRIT. 32.8 % (36.0-48.0); HEMOGLOBIN. 10.4 g/dL (12.0-16.0); LYMPHOCYTES % 17.6 % (20.0-50.0); MEAN CORPUSCULAR HEMOGLOBIN 29.6 pg (28.0-32.0); MEAN CORPUSCULAR HGB CONC 31.7 g/dL (31.0-37.0); MEAN CORPUSCULAR VOLUME 93.4 fL (81.0-99.0); MEAN PLATELET VOLUME 9.5 fl (7.4-10.4); MONOCYTES % 12.1 % (2.0-8.0); NEUTROPHILS % 64.8 % (40.0-76.0); PLATELET 185 x1000/uL (130-400); RED BLOOD CELL COUNT 3.51 mill/uL (4.2-5.4); RED CELL DISTRIBUTION WIDTH 17.6 % (11.6-14.6); WHITE BLOOD COUNT 5.6 x1000/uL (4.5-11.0)
[2024-07-01 18:54] LABS: CHLORIDE 99 mEq/L (98-107); POTASSIUM 5.1 mEq/L (3.5-5.1); SODIUM 139 mEq/L (136-145)
[2024-07-01 18:55] LABS: CALCIUM 9.1 mg/dL (8.7-10.4); CARBON DIOXIDE 31 mEq/L (21-32)
[2024-07-01 19:00] LABS: GLUCOSE 87 mg/dL (70-105); UREA NITROGEN BLOOD 27 mg/dL (9-23)
[2024-07-01 19:02] LABS: PHOSPHORUS 5.4 mg/dL (2.5-4.9)
[2024-07-01 19:10] LABS: CREATININE 9.2 mg/dL (0.6-1.0)
[2024-07-01 20:00] VITALS: BP 144/85; PULSE 67; RESP 24; TEMP 36.55848
[2024-07-01] MEDS ORDERED: EPOETIN ALFA-EPBX 4,000 UNIT/ML VIAL SUBCUT SCH (21:00)
[2024-07-01] MEDS: METOPROLOL TARTRATE 25MG TABLET PO SCH (21:46)
[2024-07-02] VITALS (15 sets, daily range): BP systolic 122–168; BP diastolic 49–90; PULSE 19–82; RESP 13–23; TEMP 36.44736–36.9474; O2SAT 98–100
[2024-07-02 06:32] LABS: CARBON DIOXIDE 30 mEq/L (21-32); CHLORIDE 99 mEq/L (98-107); POTASSIUM 5.3 mEq/L (3.5-5.1); SODIUM 140 mEq/L (136-145)
[2024-07-02 06:33] LABS: CALCIUM 8.8 mg/dL (8.7-10.4)
[2024-07-02 06:38] LABS: GLUCOSE 83 mg/dL (70-105); UREA NITROGEN BLOOD 30 mg/dL (9-23)
[2024-07-02 06:40] LABS: PHOSPHORUS 5.8 mg/dL (2.5-4.9)
[2024-07-02 06:47] LABS: BASOPHILS % 0.5 % (0.0-2.0); EOSINOPHILS % 4.6 % (0.0-5.0); HEMATOCRIT. 32.3 % (36.0-48.0); LYMPHOCYTES % 15.3 % (20.0-50.0); MEAN CORPUSCULAR HEMOGLOBIN 28.9 pg (28.0-32.0); MEAN CORPUSCULAR VOLUME 93.3 fL (81.0-99.0); MEAN PLATELET VOLUME 9.4 fl (7.4-10.4); MONOCYTES % 11.2 % (2.0-8.0); NEUTROPHILS % 68.4 % (40.0-76.0); PLATELET 189 x1000/uL (130-400); RED BLOOD CELL COUNT 3.46 mill/uL (4.2-5.4); RED CELL DISTRIBUTION WIDTH 17.2 % (11.6-14.6); WHITE BLOOD COUNT 5.4 x1000/uL (4.5-11.0)
[2024-07-02] MEDS ORDERED: VANCOMYCIN 500MG PREMIX 100 ML IV ONE (12:00)
[2024-07-02] MEDS ORDERED: CALCIUM ACETATE 667MG CAPSULE PO SCH (19:00)
== END 2024-07-02 20:30 | disposition home or self-care (01) | DRG 557 ==
LOC: ER 11:43 → EDBEDREQTM 15:24 → EDBEDREQ 15:24 → EDBEDREQSVC 15:24 → 5WST 16:01 → EDBEDREQ 16:04 → 3WST 06-30 09:26
PROVIDERS: ADMIT Family Medicine Adult Medicine; ATTEND Family Medicine Adult Medicine
PROC: 5A1D70Z Performance of Urinary Filtration, Intermittent, Less than 6 Hours Per Day (ICD-10-PCS; principal; 2024-07-02)
DX: M75.100 Unspecified rotator cuff tear or rupture of unspecified shoulder, not specified as traumatic (principal); N18.6 End stage renal disease; I13.2 Hypertensive heart and chronic kidney disease with heart failure and with stage 5 chronic kidney disease, or end stage renal disease; Q44.6 Cystic disease of liver; Q61.3 Polycystic kidney, unspecified; N25.81 Secondary hyperparathyroidism of renal origin; D64.9 Anemia, unspecified; E83.39 Other disorders of phosphorus metabolism; K74.60 Unspecified cirrhosis of liver; D69.6 Thrombocytopenia, unspecified; E78.5 Hyperlipidemia, unspecified; I50.9 Heart failure, unspecified; I45.10 Unspecified right bundle-branch block; Z99.2 Dependence on renal dialysis; K21.9 Gastro-esophageal reflux disease without esophagitis; Z86.73 Personal history of transient ischemic attack (TIA), and cerebral infarction without residual deficits; Z79.01 Long term (current) use of anticoagulants; Z79.899 Other long term (current) drug therapy; Z82.49 Family history of ischemic heart disease and other diseases of the circulatory system; Z86.14 Personal history of Methicillin resistant Staphylococcus aureus infection; Z86.718 Personal history of other venous thrombosis and embolism; Z88.0 Allergy status to penicillin; Z88.5 Allergy status to narcotic agent; Z90.49 Acquired absence of other specified parts of digestive tract; X58.XXXA Exposure to other specified factors, initial encounter; Y93.89 Activity, other specified; Y92.89 Other specified places as the place of occurrence of the external cause; Y99.8 Other external cause status
CPT/HCPCS: 36415; 71045; 71250; 73030; 73221; 74018; 80048; 80053; 80202; 83735; 83880; 84100; 84484; 85025; 90935; 93005; 99285; A4565; A6261; J3370